=== PATIENT | female | born 1960 | race Caucasian/White ===

== ENCOUNTER 2021-01-17 12:55 | Outpatient (REF) | payer MEDICAID, SELFPAY ==
--- NOTE | ~2021-01-17 | MM_ITS ---
EXAMINATION: MM SCREENING DIGITAL BREAST TOMOSYNTHESIS, BILATERAL CLINICAL INFORMATION: Screening. Asymptomatic. The lifetime risk of breast cancer based on the Tyrer-Cuzick Model is 4%. COMPARISON: Mammography: 09/02/2019, 08/06/2018, 06/24/2017 TECHNIQUE: Digital breast tomosynthesis is performed in both the craniocaudal and mediolateral oblique views along with computer-aided detection (CAD). Synthesized 2D images are generated from the tomosynthesis. Additional right MLO view is provided. FINDINGS: There are scattered areas of fibroglandular density (ACR BI-RADS breast composition Category b). There are no significant masses, abnormal calcifications, or other abnormalities. Parenchymal pattern is similar to prior studies. No significant changes. MM/MM tomosynthesis screening BI IMPRESSION: No mammographic evidence of malignancy. ASSESSMENT: BI-RADS 1: Negative RECOMMENDATION: Routine annual mammography screening. This patient's information was entered into a reminder system with a target due date for their next mammogram.
== END 2021-01-17 12:56 | disposition home or self-care (01) ==
LOC: HO.MAMMO 12:55
PROVIDERS: PCP General Practice; Visit Provider General Practice
DX: Z12.31 Encounter for screening mammogram for malignant neoplasm of breast (principal)
CPT/HCPCS: 77063; 77067

== ENCOUNTER 2022-01-20 13:34 | Outpatient (REF) | payer MEDICAID, SELFPAY ==
--- NOTE | ~2022-01-20 | MM_ITS ---
EXAMINATION: MM SCREENING DIGITAL BREAST TOMOSYNTHESIS, BILATERAL CLINICAL INFORMATION: Screening. Asymptomatic. The lifetime risk of breast cancer based on the Tyrer-Cuzick Model is 4%. COMPARISON: Mammography: 01/17/2021, 09/02/2019, 08/06/2018 TECHNIQUE: Digital breast tomosynthesis is performed in both the craniocaudal and mediolateral oblique views along with computer-aided detection (CAD). Synthesized 2D images are generated from the tomosynthesis. Additional bilateral CC and bilateral MLO views are provided. FINDINGS: There are scattered areas of fibroglandular density (ACR BI-RADS breast composition Category b). There are no significant masses, abnormal calcifications, or other abnormalities. Parenchymal pattern is similar to prior studies. No developing density. No architectural abnormality. The axilla are unremarkable. MM/MM tomosynthesis screening BI IMPRESSION: No mammographic evidence of malignancy. ASSESSMENT: BI-RADS 1: Negative RECOMMENDATION: Routine annual mammography screening. This patient's information was entered into a reminder system with a target due date for their next mammogram.
== END 2022-01-20 13:35 | disposition home or self-care (01) ==
LOC: HO.MAMMO 13:34
PROVIDERS: PCP General Practice; Visit Provider General Practice
DX: Z12.31 Encounter for screening mammogram for malignant neoplasm of breast (principal)
CPT/HCPCS: 77063; 77067

== ENCOUNTER → 2022-01-22 09:54 | Outpatient (BNVA) | payer MEDICAID, SELFPAY | PROVIDERS: PCP General Practice; Referring Provider General Practice; Visit Provider Physician Assistant | DX: Z12.11 Encounter for screening for malignant neoplasm of colon (principal); K21.9 Gastro-esophageal reflux disease without esophagitis; K59.09 Other constipation | CPT/HCPCS: 99202; 99212 ==

== ENCOUNTER → 2022-01-28 13:19 | Outpatient (BNVA) | payer MEDICAID, SELFPAY | PROVIDERS: PCP General Practice; Visit Provider Internal Medicine Pulmonary Disease | DX: J44.9 Chronic obstructive pulmonary disease, unspecified (principal); G47.33 Obstructive sleep apnea (adult) (pediatric); R06.00 Dyspnea, unspecified; Z91.09 Other allergy status, other than to drugs and biological substances | CPT/HCPCS: 99202 ==

== ENCOUNTER 2022-02-12 13:44 | Outpatient (REF) | payer MEDICAID, SELFPAY ==
--- NOTE | ~2022-02-12 | CT_ITS ---
EXAMINATION: CT CHEST WITHOUT CONTRAST CLINICAL INFORMATION: COPD COMPARISON: Previous chest x-ray most recent January 2018 TECHNIQUE: Multidetector volumetric CT imaging of the chest was done. Axial MIP volume rendering provided. Sagittal and coronal reformatted images were obtained. This CT examination was performed using dose optimization techniques as appropriate, variously including the following: *Automated exposure control *Adjustment of mA and/or kV according to patient size (this includes techniques or standardized protocols for targeted exams where dose is matched to indication/reason for exam; i.e. extremities or head) *Use of iterative reconstruction technique DLP: 283 mGy-cm FINDINGS: LUNGS: There is evidence of mild paraseptal emphysema. There is a 2 mm right upper lobe nodule axial image 36 series 10. There is a 2 mm peripheral or subpleural left lower lobe nodule adjacent to the fissure axial image 79 series 10. 2 mm nodule along the right minor fissure axial image 86 series 10. There is a 2 mm calcified right lower lobe nodule axial image 104 series 10 There is question of a 2 mm peripheral left lower lobe nodule axial image 113 series 10. There is a small 1 cm cyst in the left lower lobe axial image 140 series 10. There is increased soft tissue seen in the left mainstem bronchus. This measures 5 mm. MEDIASTINUM: There is diffuse shotty mediastinal lymphadenopathy. No enlarged lymph nodes are seen. The heart is upper normal in size. There is mild atherosclerotic disease and coronary artery calcification. There is no pericardial effusion. The thoracic aorta is normal in caliber. The visualized thyroid gland is normal. PLEURA: There is no pleural effusion. No pleural mass or thickening. AXILLA: No lymphadenopathy. UPPER ABDOMEN: There is fatty infiltration of the liver. The liver may be enlarged. OSSEOUS STRUCTURES: There are mild degenerative changes of the spine. CT/CT chest wo con IMPRESSION: Mild paraseptal emphysema. Small pulmonary nodules, largest measuring 2 mm. Question 5 mm endobronchial nodule in the left mainstem bronchus. Mild coronary artery calcification. Fatty liver. According to the UPDATED 2017 Fleischner Society recommendations, the advised follow-up imaging for less than 6 mm solid nodule: Low risk, no chest CT follow-up and high risk, optional chest CT follow-up in one year.
== END 2022-02-12 13:45 | disposition home or self-care (01) ==
LOC: HO.CT 13:44
PROVIDERS: Visit Provider Internal Medicine Pulmonary Disease
DX: J44.9 Chronic obstructive pulmonary disease, unspecified (principal)
CPT/HCPCS: 71250

== ENCOUNTER → 2022-02-19 12:25 | Outpatient (REF) | payer MEDICAID, SELFPAY ==
--- NOTE | 2022-02-19 13:40 | PFT_ITS ---
Forced vital capacity 70%, FEV1 70%, FEV1/FVC ratio is 79. CPU22-88 is 62% and MVV 68%. Post bronchodilator therapy, there is a slight improvement in FEV1 and marked improvement in KHV20-06. Total lung capacity 87% and residual volume 98%. Diffusion capacity 60%. CONCLUSION: Moderately severe obstructive airway disorder with excellent response to bronchodilator therapy. These findings are consistent with bronchial asthma/COPD overlap syndrome. Clinical correlation is recommended. Cherie Peterson MD MSB/MODL / [id number]
== END ==
LOC: HO.SL 12:25
PROVIDERS: PCP General Practice; Visit Provider Internal Medicine Pulmonary Disease
DX: G47.33 Obstructive sleep apnea (adult) (pediatric) (principal); J44.9 Chronic obstructive pulmonary disease, unspecified
CPT/HCPCS: 94060; 94727; 94729; 95806

== ENCOUNTER → 2022-03-13 13:34 | Outpatient (REF) | payer MEDICAID, SELFPAY ==
--- NOTE | 2022-03-13 13:38 | CA_ITS ---
Transthoracic Echocardiogram Patient (Last, First, Middle): Taya Hall L Gender: Female Date of : 1960 Age: 61 Procedure Date: 03/13/2022 Procedure Type: Transthoracic Echocardiogram Location: OP Height: 160.02 cm Weight: 97.07 kg BSA: 1.99 m2 Heart Rate: 72 bpm BP: 138 / 74 mmHg Stripping Shovel Oiler: SB Referring MD: Bobby Miller MD Security And Compliance Project Manager: Glynn Dotson MD Symptoms: R06.00 - Dyspnea, unspecified Study Quality: Adequate/Contrast ECG Rhythm: Sinus Conclusions: - 1. Hyperdynamic LV systolic function with pseudonormal filling pattern 2. Mitral valve not well visualized could represent rheumatic changes with at least mild mitral stenosis and mild mitral regurgitation 3. Mild aortic stenosis 4. RV systolic pressure could not be evaluated on this study Findings Procedure Information Contrast agent, definity, is being given per protocol without apparent complications. Left Ventricle Normal left ventricular cavity size. There is normal left ventricular wall thickness. The left ventricular systolic function is hyperdynamic. The visually estimated ejection fraction is >70%. Spectral Doppler is indicative of a pseudonormal filling pattern. Right Ventricle Normal right ventricular cavity size. There is borderline right ventricular systolic function. Atria The left atrium was not well visualized. Interatrial shunt cannot be excluded. The right atrium was not well visualized. Aortic Valve The aortic valve was not well visualized. There is mild aortic valve stenosis. The peak aortic gradient is 17 mmHg.The mean gradient is 10 mmHg. The aortic valve area is 1.76 cm2. There is no aortic valve regurgitation. Mitral Valve The mitral valve was not well visualized. There is mild mitral valve regurgitation. There is mild mitral valve stenosis. The calculated mitral valve area by pressure half time is 2.39 cm2. Pulmonic Valve The pulmonic valve was not well visualized. Tricuspid Valve The tricuspid valve was not well visualized. Tricuspid regurgitation envelope is inadequate for calculation of right ventricular systolic pressure. Great Vessels All visible segments of the aorta are normal in size. The pulmonary artery was not well visualized. Venous The inferior vena cava was not well visualized. Pericardium/Pleural The pericardium was not well visualized. Prior Study Comparison No prior study available for comparison. Recommendations, Care & Conclusions Consider a REINALDO if clinically appropriate. Measurements 2D Linear Measurements IVSd: 1.02 0.6-0.9/0.6-1.0 cm LVIDd: 4.90 3.9-5.3/4.2-5.9 cm LVIDd Index: 2.46 2.4-3.2/2.2-3.1 cm/m2 LVIDs: 3.29 2.0-3.6 cm LVPWd: 0.92 0.7-1.1 cm LA Diam: 4.20 2.7-3.8/3.0-4.0 cm LAIDs Index: 2.11 1.5-2.3 cm/m2 LV Mass: 210.75 67-162/88-224 g LV Mass Index: 105.91 43-95/49-115 g/m2 LVOT Diam: 2.10 3.0+(-)1.3 cm 2D Systolic Function EF 4C: 73.50 >55% EF 2C: 72.40 >55% EF BiP: 73.30 >55% Mitral Valve MV VTI: 0.52 MV Pk Everett: 1.67 MV Mn Everett: 1.25 MV Pk Grad: 11.00 MV Mn Grad: 7.00 MV Pk E: 1.61 MV PK A: 1.53 MV Decel Time: 314.00 E/A: 1.10 E'Lateral: 6.85 E'Medial: 3.92 E/E' Med: 41.10 E/E' Lat: 23.50 PHT: 92.00 MVA PHT: 2.39 MVA Planim: 2.48 MVA Continuity: 1.36 Decel Chambers: 5.13 Aortic Valve AoV Pk Everett: 2.04 AoV Mn Everett: 1.42 AoV VTI: 0.40 AoV Pk Grad: 17.00 Aov Mn Grad: 10.00 CYNDEE Cont.VTI: 1.76 LVOT LVOT Pk Everett: 1.01 LVOT Mn Everett: 0.76 LVOT VTI: 0.21 LVOT Pk Grad: 4.00 LVOT Mn Grad: 3.00 LVOT Diam: 2.10 LVOT Area: 3.46 Diastolic Function MV Pk E: 1.61 MV Pk A: 1.53 E/A: 1.10 E'Medial: 3.92 E/E' Med: 41.10 E' Laterial: 6.85 E/E' Lat: 23.50 Right Ventricle TAPSE (mm): 16.80 TVS' Everett: 10.40 Great Vessels Aorta Sinus of Valsalva: 3.00 2.0-3.5 cm Ao Asc: 3.00 2.1-3.4 cm Ao Arch: 2.10 Pulmonary Veins Pulm Vein S/D 2.00 Pulmonary Valve PV Pk Everett: 0.94 Peak PV Grad: 4.00 Updated in Other Vendor System with Status of Final Glynn Dotson MD electronically signed on 03/14/2022 11:10:15 AM with status of Final
[2022-03-13 13:48] LABS: MANUAL DIFF FLAG NO
[2022-03-13 14:41] LABS: Basophils Percent Auto 0.2 % (0-2); Eosinophils Absolute Auto 0.2 X10*3/uL (0.0-0.4); Eosinophils Percent Auto 2.5 % (0-4); Hematocrit 38.4 % (37.0-47.0); Hemoglobin 12.3 g/dl (12.0-16.0); Imm Gran Abs Auto 0.02 X10*3/uL (0.00-0.03); Imm Gran Pct Auto 0.2 % (0.0-0.4); Lymphocytes Absolute Auto 4.6 X10*3/uL (1.2-4.9); Mean Corpuscular Hemoglobin 30.1 pg (27.0-33.0); Mean Corpuscular Volume 94.1 fL (80.0-98.0); Mean Platelet Volume 9.7 fL (9.4-12.3); Monocytes Absolute Auto 0.7 X10*3/uL (0.1-1.2); Neutrophils Absolute Auto 3.3 x10*3/uL (2.0-8.3); Neutrophils Percent Auto 37.1 % (45-73); Platelet Count 283 X10*3/uL (160-400); Red Blood Count 4.08 X10*6/uL (4.20-5.50); Red Cell Distribution Width 13.1 % (11.0-16.0); White Blood Count 8.9 X10*3/uL (4.8-10.8)
== END ==
LOC: HO.CARD 13:34
PROVIDERS: PCP General Practice; Visit Provider Internal Medicine Pulmonary Disease
DX: R06.00 Dyspnea, unspecified (principal); Z91.09 Other allergy status, other than to drugs and biological substances
CPT/HCPCS: 36415; 82785; 85025; 86003; 93306; Q9957

== ENCOUNTER → 2022-04-22 12:17 | Outpatient (BNVA) | payer MEDICAID, SELFPAY | PROVIDERS: PCP General Practice; Visit Provider Internal Medicine Pulmonary Disease | DX: Z01.811 Encounter for preprocedural respiratory examination (principal); J44.9 Chronic obstructive pulmonary disease, unspecified; G47.33 Obstructive sleep apnea (adult) (pediatric) | CPT/HCPCS: 99212 ==

== ENCOUNTER 2022-05-14 09:53 | Day surgery (SDC) | payer MEDICAID, SELFPAY ==
[2022-04-29 10:07] VITALS: BMI 37.5
[2022-05-14 10:13] VITALS: BP 155/77; PULSE 74; RESP 16; TEMP 35.9; O2SAT 96
--- NOTE | 2022-05-14 10:14 | HO.ANESPROP2 ---
[facility] Active Problems Active Problems: All Active Problems (Updated 04/29/22 @ 09:53 by Vicki Malave RN) Acid reflux (Acute) Encounter for screening colonoscopy (Acute) COPD (chronic obstructive pulmonary disease) (Acute) HTN (hypertension) (Acute) Chronic constipation (Acute) HIV (human immunodeficiency virus infection) (Acute) Asthma-COPD overlap syndrome (Acute) Environmental allergies (Acute) MARTA (obstructive sleep apnea) (Acute) Dyspnea on exertion (Acute) Encounter for preoperative pulmonary examination (Acute) Past Medical History Medical History Anxiety and depression Asthma COPD (chronic obstructive pulmonary disease) HIV (human immunodeficiency virus infection) Migraine headache Smoker Family History Family history of problems with anesthesia: No Surgical History Surgical History (Updated 04/29/22 @ 09:53 by Vicki Malave RN) History of appendectomy Hx of ovarian cystectomy Hx of tonsillectomy Hx of tubal ligation History of Problems with Anesthesia: No Social History Social History Household Members: Children Household Members Other:: Resides in a Residential Are you a primary health care facilities inspector to a significant other at home: No Do you presently have visiting nurse or 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 If so, by whom?: No Are you DNR?: No Advance Directives: No Advance Directives Information Provided: Yes Advance Directives on File: No Recently lost weight without trying: No Eating poorly because of decreased appetite: No Nutrition Risks: No Nutritional Risk Meds Allergies Allergy/AdvReac Type Severity Reaction Status Date / Time penicillin G Allergy Unknown rash Verified 04/22/22 13:01 penicillin V Allergy Unknown rash Verified 04/22/22 13:01 Home Medications Medication Instructions Recorded Confirmed Last Taken Type albuterol sulfate 90 mcg/actuation 2 puff inhalation Q6H PRN Wheezing 01/22/22 04/29/22 Unknown History aerosol inhaler (ProAir HFA) amitriptyline 25 mg tablet 25 mg PO BEDTIME 01/22/22 04/29/22 Unknown History aspirin 81 mg chewable tablet 81 mg PO DAILY 01/22/22 04/29/22 Unknown History bictegravir 50 mg-emtricitabine 1 tab PO DAILY 01/22/22 04/29/22 Unknown History 200 mg-tenofovir alafenam 25 mg tablet (Biktarvy) bupropion HCl 300 mg 24 hr tablet, 300 mg PO QAM 01/22/22 04/29/22 Unknown History extended release (Wellbutrin XL) butalbital 50 mg-acetaminophen 300 1 cap PO Q4H PRN Migraine Headache 01/22/22 04/29/22 Unknown History mg-caffeine 40 mg-codeine 30 mg cap celecoxib 100 mg capsule 200 mg PO DAILY 01/22/22 04/29/22 Unknown History cetirizine 10 mg capsule (Zyrtec) 10 mg PO DAILY PRN Allergy Symptoms 01/22/22 04/29/22 Unknown History cholecalciferol (vitamin D3) 25 25 mcg PO DAILY 01/22/22 04/29/22 Unknown History mcg (1,000 unit) capsule cyproheptadine 4 mg tablet 4 mg PO BEDTIME 01/22/22 04/29/22 Unknown History docusate sodium 100 mg capsule 100 mg PO DAILY 01/22/22 04/29/22 Unknown History fluticasone 500 mcg-salmeterol 50 1 inh inhalation BID 01/22/22 04/29/22 Unknown History mcg/dose blistr powdr for inhalation (Advair Diskus) fluticasone propionate 50 1 spray intranasal Q12H 01/22/22 04/29/22 Unknown History mcg/actuation nasal spray,suspension hydroxychloroquine 200 mg tablet 200 mg PO BID 01/22/22 04/29/22 Unknown History omega 4-mqd-zzd-fish oil 100 cap PO 01/22/22 01/24/22 Unknown History mg-160 mg-1,000 mg capsule (Fish Oil) omeprazole 40 mg capsule,delayed 40 mg PO DAILY 01/22/22 04/29/22 Unknown History release oxybutynin chloride 15 mg 15 mg PO DAILY 01/22/22 04/29/22 Unknown History tablet,extended release 24 hr propranolol 60 mg capsule,24 60 mg PO BEDTIME 01/22/22 04/29/22 Unknown History hr,extended release sennosides 8.6 mg capsule (senna) 8.6 mg PO DAILY 01/22/22 04/29/22 Unknown History simvastatin 40 mg tablet 40 mg PO BEDTIME 01/22/22 04/29/22 Unknown History tiotropium bromide 18 mcg capsule 1 cap inhalation DAILY 01/22/22 04/29/22 Unknown History with inhalation device (Spiriva with HandiHaler) Exam Exam Date and Time: May 14, 2022 1014 Height,Weight and Vital Signs: Height 5 ft 3 in Weight 96.162 kg Airway Mallampati Class: II (Couple teeth on bottom) TM Dist: >3cm Neck ROM: Full Denture: Upper Heart: rrr Lungs: cta Assessment and Plan Assessment Anesthesia Assessment: Anesthesia Plan Discussed and Chart Reviewed Final Anesthetic Review Family History of Problems with Anesthesia: No History of Problems with Anesthesia: No NPO: Yes ASA Class: III Final Preanesthetic Review: No Changes in Pt Med Stat, Meds/Allgs Chart Reviewed and Consent Obtained/Reviewed Patient Risk: Intermediate Procedure Risk: Intermediate Anesthetic Plan Anesthetic Plan: MAC: Disposition: Standard PACU
--- NOTE | 2022-05-14 10:23 | MHC.SHP ---
Pre-Procedural Eval Section A Date of Service: 05/14/22 Section B Chief Complaint: screening,reflux Relevant Family History (Specify if Yes): No Relevant Social History: Tobacco Use Present Medications: see Short Stay Collaborative assessment Medical History: Significant History (htn,copd, hiv,arti) History of Previous Operations: Relevant previous surgery/procedure and date(s) (History of appendectomy Hx of tonsillectomy Hx of tubal ligation) Allergies: Allergies Allergy/AdvReac Type Severity Reaction Status Date / Time penicillin G Allergy Unknown rash Verified 04/22/22 13:01 penicillin V Allergy Unknown rash Verified 04/22/22 13:01 Review of Systems Sugical H&P ROS: Negative: Constitution, Cardiovascular, Respiratory, Neurological, Psychiatric, Hem-Onc, Allergic/Immunologic, Gastrointestinal, Genitourinary, Musculoskeletal, Integumentary, Endocrine and Eyes/Ears/Nose/Throat Exam Surgical H&P Exam: Normal: HEENT, Normal: Heart, Normal: Lungs, Normal: Extremities, Normal: Abdomen, Normal: Skin and Normal: Neurological Plan Diagnosis/Plan: Unchanged I have reviewed the history and physical and performed a pertinent physical examination on my patient. No changes have occurred unless specified.
[2022-05-14] MEDS: Lactated Ringers 1,000 ML 50 ML IVCONT (10:29)
--- NOTE | 2022-05-14 10:39 | W.PM.OPN ---
Operative Note Operative Note Date of Service: 05/14/22 Narrative: Operative Information Procedure Description: EGD, Colonoscopy Indication: screening and reflux Anesthesia: MAC FLEXIBLE TRANSORAL UPPER GASTROINTESTINAL ENDOSCOPY AND COLONOSCOPY PROCEDURE NOTE UPPER ENDOSCOPY Consent: Indications for the procedure and potential complications of bleeding, perforation, reaction to medications and missed diagnosis were discussed with the patient and informed consent was obtained. Instrument: Olympus GIF H 190 J mid size upper endoscope Monitoring: Vital signs and clinical assessment, continuous EKG monitoring, Pulse oximetry, Carbon Dioxide monitoring and blood pressure monitoring were done throughout the procedure. Procedure: The patient was placed in the left lateral decubitis position and pre-procedure medications were administered and a bite block was placed. The endoscope was inserted into the mouth and advanced under direct vision to the third part of duodenum. A careful inspection was made as the upper endoscope was withdrawn including a retroflexed examination of the proximal stomach; Findings and interventions are described below. Findings: Larynx: boggy and edematous appearing Esophagus: GE junction at 40 cm, diaphragm hiatus at 40 cm, suspected short segment barretts wt an island of salmon pink tissue at GEJ and short tongue Stomach: streaky erythema at antrum. Biopsies were obtained. Grade 2 flap valve on retroflexed examination of the cardia. Duodenum: Normal bulb and descending duodenum, Intervention: Biopsies as noted above COLONOSCOPY Instrument: Olympus variable stiffness pediatric scope 190L Colonoscopy Monitoring: Vital signs and clinical assessment, continuous EKG monitoring, Pulse oximetry, Carbon Dioxide monitoring and blood pressure monitoring were done throughout the procedure. The scope was inserted but the colon was full of stools, up to the ascending colon, with poor visualization so the procedure was aborted. Impression and Post Procedure Diagnosis: Endoscopy Findings: possible barretts gastritis Colonoscopy Findings: poor prep, aborted colonoscopy Plan: Await Pathology results, if h pylori pos then treat Repeat Colonoscopy in few months and review prep instructions with her again Above findings were reviewed with the patient and relevant handouts were provided if indicated.
[2022-05-14 11:23] VITALS: BP 97/47; PULSE 82; RESP 16; TEMP 36.8; O2SAT 96
[2022-05-14 11:39] VITALS: BP 117/61; PULSE 81; RESP 17; TEMP 36.8; O2SAT 97
== END 2022-05-14 12:25 | disposition home or self-care (01) ==
PROVIDERS: PCP General Practice; Visit Provider Internal Medicine Gastroenterology
PROC: (CPT 45378; principal; 2022-05-14 11:00)
DX: Z12.11 Encounter for screening for malignant neoplasm of colon (principal); Z91.19 Patient's noncompliance with other medical treatment and regimen; K21.9 Gastro-esophageal reflux disease without esophagitis; K29.50 Unspecified chronic gastritis without bleeding; B96.81 Helicobacter pylori [H. pylori] as the cause of diseases classified elsewhere; G47.33 Obstructive sleep apnea (adult) (pediatric); K44.9 Diaphragmatic hernia without obstruction or gangrene
CPT/HCPCS: 45378; 43239; 88305; 88342

== ENCOUNTER → 2022-06-23 10:35 | Outpatient (BNVA) | payer MEDICAID, SELFPAY | PROVIDERS: PCP General Practice; Visit Provider Physician Assistant | DX: K21.9 Gastro-esophageal reflux disease without esophagitis (principal); A04.8 Other specified bacterial intestinal infections | CPT/HCPCS: 99212 ==

== ENCOUNTER → 2022-08-19 10:17 | Outpatient (BNVA) | payer MEDICAID, SELFPAY | PROVIDERS: PCP General Practice; Visit Provider Physician Assistant | DX: Z13.89 Encounter for screening for other disorder (principal) ==

== ENCOUNTER 2022-08-19 16:42 | Outpatient (REF) | payer MEDICAID, SELFPAY ==
[2022-08-22 14:47] LABS: H Pylori Breath Test Negative (Negative)
== END 2022-08-19 16:43 | disposition home or self-care (01) ==
LOC: HO.LNP 16:42
PROVIDERS: Visit Provider Physician Assistant
DX: A04.8 Other specified bacterial intestinal infections (principal)
CPT/HCPCS: 83013

== ENCOUNTER → 2022-12-04 11:48 | Outpatient (BNVA) | payer MEDICAID, SELFPAY | PROVIDERS: PCP General Practice; Visit Provider Physician Assistant | DX: Z98.890 Other specified postprocedural states (principal) | CPT/HCPCS: 99212 ==

== ENCOUNTER 2023-03-05 10:40 | Outpatient (REF) | payer MEDICAID, SELFPAY ==
--- NOTE | ~2023-03-05 | MM_ITS ---
EXAMINATION: MM SCREENING DIGITAL BREAST TOMOSYNTHESIS, BILATERAL CLINICAL INFORMATION: Screening. Asymptomatic. The lifetime risk of breast cancer based on the Tyrer-Cuzick Model is 3.7%. COMPARISON: Mammography: This study is compared with prior exams dating back to 2018. TECHNIQUE: Digital breast tomosynthesis is performed in both the craniocaudal and mediolateral oblique views along with computer-aided detection (CAD). Synthesized 2D images are generated from the tomosynthesis. FINDINGS: The breasts are almost entirely fatty (ACR BI-RADS breast composition Category a). There are no significant masses, abnormal calcifications, or other abnormalities. MM/MM tomosynthesis screening BI IMPRESSION: No mammographic evidence of malignancy. ASSESSMENT: BI-RADS BI-RADS 1 - Negative RECOMMENDATION: Routine annual mammography screening. 1 year F/U This examination should not preclude the clinical evaluation of a suspicious palpable abnormality. This patient's information was entered into a reminder system with a target due date for their next mammogram.
== END 2023-03-05 10:41 | disposition home or self-care (01) ==
LOC: HO.MAMMO 10:40
PROVIDERS: PCP General Practice; Visit Provider General Practice
DX: Z12.31 Encounter for screening mammogram for malignant neoplasm of breast (principal)
CPT/HCPCS: 77063; 77067

== ENCOUNTER → 2023-03-05 11:00 | Outpatient (BNV) | payer MEDICAID, SELFPAY | PROVIDERS: PCP General Practice; Visit Provider Radiology Diagnostic Radiology | DX: Z12.31 Encounter for screening mammogram for malignant neoplasm of breast (principal) | CPT/HCPCS: 77063; 77067 ==

== ENCOUNTER 2023-05-05 13:02 | Outpatient (REF) | payer MEDICAID, SELFPAY ==
[2023-05-05 16:29] LABS: Basophils Absolute Auto 0.1 X10*3/uL (0.0-0.2); Basophils Percent Auto 0.5 % (0-2); Eosinophils Absolute Auto 0.2 X10*3/uL (0.0-0.4); Eosinophils Percent Auto 1.8 % (0-4); Hematocrit 42.7 % (37.0-47.0); Hemoglobin 13.8 g/dl (12.0-16.0); Imm Gran Abs Auto 0.03 X10*3/uL (0.00-0.03); Imm Gran Pct Auto 0.3 % (0.0-0.4); Lymphocytes Absolute Auto 5.6 X10*3/uL (1.2-4.9); MANUAL DIFF FLAG SCAN; Mean Corpuscular HGB Conc 32.3 g/dl (31.0-35.0); Mean Corpuscular Hemoglobin 31.7 pg (27.0-33.0); Mean Corpuscular Volume 97.9 fL (80.0-98.0); Mean Platelet Volume 10.2 fL (9.4-12.3); Monocytes Absolute Auto 0.7 X10*3/uL (0.1-1.2); Monocytes Percent Auto 7.3 % (2-11); Neutrophils Absolute Auto 3.6 x10*3/uL (2.0-8.3); Neutrophils Percent Auto 35.1 % (45-73); Platelet Count 321 X10*3/uL (160-400); Red Blood Count 4.36 X10*6/uL (4.20-5.50); Red Cell Distribution Width 12.7 % (11.0-16.0); SCAN SMEAR FLAG 1; White Blood Count 10.1 X10*3/uL (4.8-10.8)
[2023-05-05 16:48] LABS: Alanine Aminotransferase 25 U/L (0-31); Albumin Level 4.2 g/dL (3.5-5.0); Alkaline Phosphatase 151 U/L (39-117); Anion Gap 11 (12-20); Aspartate Amino Transferase 35 U/L (5-31); Bilirubin Total 0.6 mg/dL (0.0-1.0); Blood Urea Nitrogen 16 mg/dL (9-16); Calcium 10.2 mg/dL (8.4-10.2); Carbon Dioxide 30 mmol/L (22-29); Chloride 104 mmol/L (96-108); Estimated Glomerular Filt Rate 44; Glucose Random 132 mg/dL (60-115); Potassium 4.7 mmol/L (3.3-5.1); Sodium 140 mmol/L (135-145); Total Protein 8.2 g/dL (6.5-8.0)
[2023-05-05 17:07] LABS: SLIDE REVIEW VERIFIED
[2023-05-06 15:34] LABS: HIV RNA PCR Qn Copies 187 copies/mL (NOT DETECTED); HIV RNA PCR Qn Log Copies 2.27 (NOT DETECTED)
[2023-05-07 11:43] LABS: Absolute CD4 Count 1890 cells/uL (490-1740); Absolute CD8 Count 2459 cells/uL (180-1170); Absolute Lymphocytes 6116 cells/uL (850-3900); CD4 CD8 Ratio 0.77 (0.86-5.00); Percent CD4 Cells 31 % (30-61); Percent CD8 Cells 40 % (12-42)
== END 2023-05-05 13:03 | disposition home or self-care (01) ==
LOC: HO.HHCL 13:02
PROVIDERS: Visit Provider Family Medicine
DX: B20 Human immunodeficiency virus [HIV] disease (principal)
CPT/HCPCS: 36415; 80053; 85025; 86360; 87536

== ENCOUNTER 2023-06-30 07:37 | Day surgery (SDC) | payer MEDICAID, SELFPAY ==
--- NOTE | 2023-06-29 11:51 | P.CONAN_ITS ---
Documented by User: Milka Valdivia NP 06/29/23 11:52 HPI - Anesthesia Eval Consult details Narrative: 63yo F for Colonoscopy PMFSH Active Problems Active Problems: All Active Problems (Updated 06/23/22 @ 11:13 by Tammy Reyes PA-C) Hx of colonoscopy (Acute) H. pylori infection (Acute) Acid reflux (Acute) Encounter for screening colonoscopy (Acute) COPD (chronic obstructive pulmonary disease) (Acute) HTN (hypertension) (Acute) Chronic constipation (Acute) HIV (human immunodeficiency virus infection) (Acute) Asthma-COPD overlap syndrome (Acute) Environmental allergies (Acute) MARTA (obstructive sleep apnea) (Acute) Dyspnea on exertion (Acute) Encounter for preoperative pulmonary examination (Acute) Past Medical History Medical History Smoker Migraine headache Anxiety and depression HIV (human immunodeficiency virus infection) COPD (chronic obstructive pulmonary disease) Asthma Family History Family history of problems with anesthesia: No Surgical History Surgical History History of esophagogastroduodenoscopy (EGD) Hx of colonoscopy Hx of ovarian cystectomy Hx of tubal ligation Hx of tonsillectomy History of appendectomy History of Problems with Anesthesia: No Social History Social History Household Members: Children Household Members Other:: Resides in a Skilled Nursing Are you a primary director of career resources to a significant other at home: No Do you presently have visiting nurse or other home services: Yes (PATIENT SITTER) Alcohol intake: never Patient Tobacco Use Status: Current everyday Tobacco user Tobacco use type: Cigarette Cigarettes Per Day: 2 Years Smoked: 30+ Second Hand Smoke Exposure: Yes Use of substances other than those prescribed or required for medical reasons: No Are you DNR?: No Advance Directives: No Advance Directives Information Provided: Yes Meds Allergies Allergy/AdvReac Type Severity Reaction Status Date / Time penicillin G Allergy Unknown rash Verified 12/04/22 11:53 penicillin V Allergy Unknown rash Verified 12/04/22 11:53 Home Medications Medication Instructions Recorded Confirmed Last Taken Type albuterol sulfate 90 mcg/actuation 2 puff inhalation Q6H PRN Wheezing 01/22/22 06/23/22 Unknown History aerosol inhaler (ProAir HFA) amitriptyline 25 mg tablet 25 mg PO BEDTIME 01/22/22 06/23/22 Unknown History aspirin 81 mg chewable tablet 81 mg PO DAILY 01/22/22 06/23/22 06/23/23 History bictegravir 50 mg-emtricitabine 1 tab PO DAILY 01/22/22 06/23/22 05/14/22 07:00 History 200 mg-tenofovir alafenam 25 mg tablet (Biktarvy) bupropion HCl 300 mg 24 hr tablet, 300 mg PO QAM 01/22/22 06/23/22 05/14/22 07:00 History extended release (Wellbutrin XL) butalbital 50 mg-acetaminophen 300 1 cap PO Q4H PRN Migraine Headache 01/22/22 06/23/22 Unknown History mg-caffeine 40 mg-codeine 30 mg cap celecoxib 100 mg capsule 200 mg PO DAILY 01/22/22 06/23/22 Unknown History cetirizine 10 mg capsule (Zyrtec) 10 mg PO DAILY PRN Allergy Symptoms 01/22/22 06/23/22 Unknown History cholecalciferol (vitamin D3) 25 25 mcg PO DAILY 01/22/22 06/23/22 Unknown History mcg (1,000 unit) capsule cyproheptadine 4 mg tablet 4 mg PO BEDTIME 01/22/22 06/23/22 Unknown History docusate sodium 100 mg capsule 100 mg PO DAILY 01/22/22 06/23/22 Unknown History fluticasone 500 mcg-salmeterol 50 1 inh inhalation BID 01/22/22 06/23/22 Unknown History mcg/dose blistr powdr for inhalation (Advair Diskus) fluticasone propionate 50 1 spray intranasal Q12H 01/22/22 06/23/22 Unknown History mcg/actuation nasal spray,suspension hydroxychloroquine 200 mg tablet 200 mg PO BID 01/22/22 06/23/22 05/14/22 07:00 History omega 6-qwu-wjg-fish oil 100 cap PO 01/22/22 06/23/22 Unknown History mg-160 mg-1,000 mg capsule (Fish Oil) omeprazole 40 mg capsule,delayed 40 mg PO DAILY 01/22/22 06/23/22 06/30/23 07:00 History release oxybutynin chloride 15 mg 15 mg PO DAILY 01/22/22 06/23/22 Unknown History tablet,extended release 24 hr propranolol 60 mg capsule,24 60 mg PO BEDTIME 01/22/22 06/23/22 Unknown History hr,extended release sennosides 8.6 mg capsule (senna) 8.6 mg PO DAILY 01/22/22 06/23/22 Unknown H istory simvastatin 40 mg tablet 40 mg PO BEDTIME 01/22/22 06/23/22 Unknown History tiotropium bromide 18 mcg capsule 1 cap inhalation DAILY 01/22/22 06/23/22 Unknown History with inhalation device (Spiriva with HandiHaler) Exam Exam Date and Time: June 29, 2023 1151 Pertinent Lab Results Pertinent Lab Results: Laboratory Tests 05/05/23 13:06 WBC 10.1 Hgb 13.8 Hct 42.7 Plt Count 321 Sodium 140 Potassium 4.7 Chloride 104 Carbon Dioxide 30 H BUN 16 Creatinine 1.24 Narrative Narrative: ECHO 2021 Conclusions: - 1. Hyperdynamic LV systolic function with pseudonormal filling pattern 2. Mitral valve not well visualized could represent rheumatic changes with at least mild mitral stenosis and mild mitral regurgitation 3. Mild aortic stenosis 4. RV systolic pressure could not be evaluated on this study Assessment and Plan Assessment Anesthesia Assessment: Chart Reviewed Final Anesthetic Review Family History of Problems with Anesthesia: No History of Problems with Anesthesia: No Documented by User: Sabrina Lua MD 06/30/23 09:22 [facility] Past Medical History Medical History Smoker Migraine headache Anxiety and depression HIV (human immunodeficiency virus infection) COPD (chronic obstructive pulmonary disease) Asthma Surgical History Surgical History History of esophagogastroduodenoscopy (EGD) Hx of colonoscopy Hx of ovarian cystectomy Hx of tubal ligation Hx of tonsillectomy History of appendectomy Social History Social History Household Members: Children Household Members Other:: Resides in a Skilled Nursing Are you a primary director of career resources to a significant other at home: No Do you presently have visiting nurse or other home services: Yes (PATIENT SITTER) Alcohol intake: never Patient Tobacco Use Status: Current everyday Tobacco user Tobacco use type: Cigarette Cigarettes Per Day: 2 Years Smoked: 30+ Second Hand Smoke Exposure: Yes Use of substances other than those prescribed or required for medical reasons: No Are you DNR?: No Advance Directives: No Advance Directives Information Provided: Yes Meds Allergies Allergy/AdvReac Type Severity Reaction Status Date / Time penicillin G Allergy Unknown rash Verified 12/04/22 11:53 penicillin V Allergy Unknown rash Verified 12/04/22 11:53 Home Medications Medication Instructions Recorded Confirmed Last Taken Type albuterol sulfate 90 mcg/actuation 2 puff inhalation Q6H PRN Wheezing 01/22/22 06/23/22 Unknown History aerosol inhaler (ProAir HFA) amitriptyline 25 mg tablet 25 mg PO BEDTIME 01/22/22 06/23/22 Unknown History aspirin 81 mg chewable tablet 81 mg PO DAILY 01/22/22 06/23/22 06/23/23 History bictegravir 50 mg-emtricitabine 1 tab PO DAILY 01/22/22 06/23/22 05/14/22 07:00 History 200 mg-tenofovir alafenam 25 mg tablet (Biktarvy) bupropion HCl 300 mg 24 hr tablet, 300 mg PO QAM 01/22/22 06/23/22 05/14/22 07:00 History extended release (Wellbutrin XL) butalbital 50 mg-acetaminophen 300 1 cap PO Q4H PRN Migraine Headache 01/22/22 06/23/22 Unknown History mg-caffeine 40 mg-codeine 30 mg cap celecoxib 100 mg capsule 200 mg PO DAILY 01/22/22 06/23/22 Unknown History cetirizine 10 mg capsule (Zyrtec) 10 mg PO DAILY PRN Allergy Symptoms 01/22/22 06/23/22 Unknown History cholecalciferol (vitamin D3) 25 25 mcg PO DAILY 01/22/22 06/23/22 Unknown History mcg (1,000 unit) capsule cyproheptadine 4 mg tablet 4 mg PO BEDTIME 01/22/22 06/23/22 Unknown History docusate sodium 100 mg capsule 100 mg PO DAILY 01/22/22 06/23/22 Unknown History fluticasone 500 mcg-salmeterol 50 1 inh inhalation BID 01/22/22 06/23/22 Unknown History mcg/dose blistr powdr for inhalation (Advair Diskus) fluticasone propionate 50 1 spray intranasal Q12H 01/22/22 06/23/22 Unknown History mcg/actuation nasal spray,suspension hydroxychloroquine 200 mg tablet 200 mg PO BID 01/22/22 06/23/22 05/14/22 07:00 History omega 0-yal-eqx-fish oil 100 cap PO 01/22/22 06/23/22 Unknown History mg-160 mg-1,000 mg capsule (Fish Oil) omeprazole 40 mg capsule,delayed 40 mg PO DAILY 01/22/22 06/23/22 06/30/23 07:00 History release oxybutynin chloride 15 mg 15 mg PO DAILY 01/22/22 06/23/22 Unknown History tablet,extended release 24 hr propranolol 60 mg capsule,24 60 mg PO BEDTIME 01/22/22 06/23/22 Unknown History hr,extended release sennosides 8.6 mg capsule (senna) 8.6 mg PO DAILY 01/22/22 06/23/22 Unknown History simvastatin 40 mg tablet 40 mg PO BEDTIME 01/22/22 06/23/22 Unknown History tiotropium bromide 18 mcg capsule 1 cap inhalation DAILY 01/22/22 06/23/22 Unknown History with inhalation device (Spiriva with HandiHaler) Exam Airway Mallampati Class: II (edentulous) TM Dist: >3cm Neck ROM: Full Loose/Missing/Broken Teeth: Yes, Upper and Lower Heart: RRR Lungs: CTA Assessment and Plan Assessment Anesthesia Assessment: Anesthesia Plan Discussed Final Anesthetic Review NPO: Yes ASA Class: III Final Preanesthetic Review: Meds/Allgs Chart Reviewed, Consent Obtained/Reviewed and Anes Risks/Benef Reviewed Patient Risk: Intermediate Procedure Risk: Low Anesthetic Plan Anesthetic Plan: MAC: Disposition: Standard PACU
[2023-06-30 08:14] VITALS: BMI 36.5
[2023-06-30 08:17] VITALS: BP 132/61; PULSE 72; RESP 16; O2SAT 99
[2023-06-30 08:19] VITALS: BMI 36.5
[2023-06-30] MEDS: Lactated Ringers 1,000 ML 100 ML IVCONT (08:31)
--- NOTE | 2023-06-30 09:05 | MHC.SHP ---
Pre-Procedural Eval Section A Date of Service: 06/30/23 Section B Chief Complaint: Other specified postprocedural states Relevant Family History (Specify if Yes): No Relevant Social History: Tobacco Use Present Medications: see Short Stay Collaborative assessment Medical History: Significant History (Smoker Migraine headache Anxiety and depression HIV (human immunodeficiency virus infection) COPD (chronic obstructive pulmonary disease) Asthma) History of Previous Operations: Relevant previous surgery/procedure and date(s) (History of esophagogastroduodenoscopy (EGD) Hx of colonoscopy Hx of ovarian cystectomy Hx of tubal ligation Hx of tonsillectomy History of appendectomy) Allergies: Allergies Allergy/AdvReac Type Severity Reaction Status Date / Time penicillin G Allergy Unknown rash Verified 12/04/22 11:53 penicillin V Allergy Unknown rash Verified 12/04/22 11:53 Review of Systems Sugical H&P ROS: Negative: Constitution, Cardiovascular, Respiratory, Neurological, Psychiatric, Hem-Onc, Allergic/Immunologic, Gastrointestinal, Genitourinary, Musculoskeletal, Integumentary, Endocrine and Eyes/Ears/Nose/Throat Exam Surgical H&P Exam: Normal: HEENT, Normal: Heart, Normal: Lungs, Normal: Extremities, Normal: Abdomen, Normal: Skin and Normal: Neurological Plan Diagnosis/Plan: Unchanged I have reviewed the history and physical and performed a pertinent physical examination on my patient. No changes have occurred unless specified. Time Spent With Patient Time: Total time managing care of this patient today ____ minutes.
--- NOTE | 2023-06-30 09:24 | W.PM.OPN ---
Operative Note Operative Note Date of Service: 06/30/23 Narrative: Operative Information Procedure Description: Colonoscopy Indication: screening Anesthesia: MAC COLONOSCOPY Instrument: Olympus variable stiffness pediatric scope 190L Colonoscopy Monitoring: Vital signs and clinical assessment, continuous EKG monitoring, Pulse oximetry, Carbon Dioxide monitoring and blood pressure monitoring were done throughout the procedure. Colon withdrawal time was 9 minutes. Procedure: The patient was placed in the left lateral decubitis position and pre-procedure medications were administered. After a digital rectal examination of the ano-rectum, the video colonoscope was inserted into the rectum and advanced through the colon to the cecum/TI. The colonoscope was slowly withdrawn in a retrograde panoramic fashion and the colon mucosa was carefully examined including a retroflexed view of the rectum. Findings and interventions are described below. Procedure Difficulty: moderate Findings: Terminal Ileum-normal Cecum:normal Ascending Colon: 5-6 mm sessile polyp removed with cold forceps, and another 11-12 mm sessile polyp removed with cold snare Transverse Colon -normal Descending Colon:normal Sigmoid Colon: moderate diverticulosis Rectum: Retroflexion with medium sized internal hemorrhoids, grade I Anorectum - normal Colon preparation: [place] Bowel Preparation Scale Right colon; 1-2 Transverse colon: 2 Left colon; 2 (0 = Unprepared colon segment with mucosa not seen due to solid stool that cannot be cleared. 1 = Portion of mucosa of the colon segment seen, but other areas of the colon segment not well seen due to staining, residual stool and/or opaque liquid. 2 = Minor amount of residual staining, small fragments of stool and/or opaque liquid, but mucosa of colon segment seen well. 3 = Entire mucosa of colon segment seen well with no residual staining, small fragments of stool or opaque liquid) Impression and Post Procedure Diagnosis: polyps internal hemorrhoids diverticular disease Plan: High fiber diet leaflet Avoid straining at stool, epsom salts and sitz bath, anusol supps or cream Repeat Colonoscopy in 3 years due to fair right sided prep and polyps or earlier if clinically indicated Above findings were reviewed with the patient and relevant handouts were provided if indicated.
[2023-06-30 09:55] VITALS: BP 117/52; PULSE 77; RESP 18; TEMP 36.4; O2SAT 100
[2023-06-30 10:10] VITALS: BP 117/54; PULSE 74; RESP 18; TEMP 36.2; O2SAT 98
== END 2023-06-30 10:40 | disposition home or self-care (01) ==
PROVIDERS: PCP General Practice; Visit Provider Internal Medicine Gastroenterology
PROC: 0DJD8ZZ Inspection of Lower Intestinal Tract, Via Natural or Artificial Opening Endoscopic (ICD-10-PCS; CPT 45378; principal; 2023-06-30 09:00)
DX: Z12.11 Encounter for screening for malignant neoplasm of colon (principal); D12.2 Benign neoplasm of ascending colon; K57.30 Diverticulosis of large intestine without perforation or abscess without bleeding; K64.0 First degree hemorrhoids; K59.09 Other constipation; B20 Human immunodeficiency virus [HIV] disease; J44.9 Chronic obstructive pulmonary disease, unspecified; G47.33 Obstructive sleep apnea (adult) (pediatric); G43.909 Migraine, unspecified, not intractable, without status migrainosus; F41.8 Other specified anxiety disorders; Z79.51 Long term (current) use of inhaled steroids; Z79.82 Long term (current) use of aspirin; Z79.899 Other long term (current) drug therapy; Z98.890 Other specified postprocedural states; Z88.0 Allergy status to penicillin; F17.210 Nicotine dependence, cigarettes, uncomplicated
CPT/HCPCS: 45385; 45380; 88305

== ENCOUNTER → 2023-06-30 07:37 | Outpatient (BNV) | payer MEDICAID, SELFPAY | PROVIDERS: PCP General Practice; Visit Provider Internal Medicine Gastroenterology | DX: Z12.11 Encounter for screening for malignant neoplasm of colon (principal); D12.2 Benign neoplasm of ascending colon; K57.30 Diverticulosis of large intestine without perforation or abscess without bleeding; K64.0 First degree hemorrhoids | CPT/HCPCS: 45380; 45385 ==

== ENCOUNTER 2023-07-13 11:17 | Outpatient (REF) | payer MEDICAID, SELFPAY ==
[2023-07-13 14:10] LABS: Alanine Aminotransferase 29 U/L (0-31); Albumin Level 4.2 g/dL (3.5-5.0); Alkaline Phosphatase 166 U/L (39-117); Anion Gap 11 (12-20); Aspartate Amino Transferase 38 U/L (5-31); Bilirubin Total 0.5 mg/dL (0.0-1.0); Blood Urea Nitrogen 15 mg/dL (9-16); Calcium 9.9 mg/dL (8.4-10.2); Carbon Dioxide 30 mmol/L (22-29); Chloride 102 mmol/L (96-108); Estimated Glomerular Filt Rate 58; Glucose Random 123 mg/dL (60-115); Potassium 4.6 mmol/L (3.3-5.1); Sodium 138 mmol/L (135-145); Total Protein 8.1 g/dL (6.5-8.0)
[2023-07-15 09:03] LABS: HIV RNA PCR Qn Copies 49 copies/mL (NOT DETECTED); HIV RNA PCR Qn Log Copies 1.69 (NOT DETECTED)
[2023-07-22 21:38] LABS: HIV 1 Integrase Proviral DNA DETECTED; HIV 1 PR RT Proviral DNA DETECTED
== END 2023-07-13 11:18 | disposition home or self-care (01) ==
LOC: HO.HHCL 11:17
PROVIDERS: Visit Provider Student in an Organized Health Care Education/Training Program
DX: B20 Human immunodeficiency virus [HIV] disease (principal)
CPT/HCPCS: 36415; 80053; 87536; 87900; 87901; 87906

== ENCOUNTER 2023-10-09 10:39 | Outpatient (REF) | payer MEDICAID, SELFPAY ==
[2023-10-09 11:40] LABS: MANUAL DIFF FLAG NO
[2023-10-09 11:50] LABS: Basophils Percent Auto 0.5 % (0-2); Eosinophils Absolute Auto 0.2 X10*3/uL (0.0-0.4); Eosinophils Percent Auto 2.4 % (0-4); Hematocrit 40.6 % (37.0-47.0); Hemoglobin 13.1 g/dl (12.0-16.0); Imm Gran Abs Auto 0.03 X10*3/uL (0.00-0.03); Imm Gran Pct Auto 0.4 % (0.0-0.4); Lymphocytes Absolute Auto 4.1 X10*3/uL (1.2-4.9); Lymphocytes Percent Auto 49.3 % (20-40); Mean Corpuscular HGB Conc 32.3 g/dl (31.0-35.0); Mean Corpuscular Hemoglobin 30.9 pg (27.0-33.0); Mean Corpuscular Volume 95.8 fL (80.0-98.0); Mean Platelet Volume 9.8 fL (9.4-12.3); Monocytes Absolute Auto 0.6 X10*3/uL (0.1-1.2); Monocytes Percent Auto 7.1 % (2-11); Neutrophils Absolute Auto 3.4 x10*3/uL (2.0-8.3); Neutrophils Percent Auto 40.3 % (45-73); Platelet Count 304 X10*3/uL (160-400); Red Blood Count 4.24 X10*6/uL (4.20-5.50); Red Cell Distribution Width 12.5 % (11.0-16.0); White Blood Count 8.3 X10*3/uL (4.8-10.8)
[2023-10-09 12:15] LABS: Alanine Aminotransferase 36 U/L (0-31); Albumin Level 4.2 g/dL (3.5-5.0); Alkaline Phosphatase 201 U/L (39-117); Anion Gap 13 (12-20); Aspartate Amino Transferase 58 U/L (5-31); Bilirubin Total 0.5 mg/dL (0.0-1.0); Blood Urea Nitrogen 15 mg/dL (9-16); Calcium 9.9 mg/dL (8.4-10.2); Carbon Dioxide 28 mmol/L (22-29); Chloride 101 mmol/L (96-108); Estimated Glomerular Filt Rate > 60; Glucose Random 206 mg/dL (60-115); Potassium 4.2 mmol/L (3.3-5.1); Sodium 138 mmol/L (135-145); Total Protein 8.5 g/dL (6.5-8.0)
[2023-10-09 12:33] LABS: HBS Num1 0.16 mIU/mL (0-7.99); HBc Num1 0.11 S/CO (0.00-0.79); HBsAGNum1 0.31 S/CO (0.00-0.99); Hepatitis B Core Antibody Nonreactive (Nonreactive); Hepatitis B Surface Antigen Negative (Negative); Syphilis Screen Nonreactive (Nonreactive); ~HepC Num1 0.12 S/CO (0.00-0.79); ~Hepatitis B Surface Antibody NONREACTIVE (Nonreactive); ~Hepatitis C Antibody Nonreactive (Nonreactive)
[2023-10-09 12:59] LABS: CT PCR NOT DETECTED (Not Detect.); NG PCR NOT DETECTED (Not Detect.)
[2023-10-12 10:28] LABS: Absolute CD3 Count 3071 cells/uL (840-3060); Absolute CD4 Count 1579 cells/uL (490-1740); Absolute CD8 Count 1520 cells/uL (180-1170); Absolute Lymphocytes 4538 cells/uL (850-3900); CD4 CD8 Ratio 1.04 (0.86-5.00); Percent CD3 Cells 68 % (57-85); Percent CD4 Cells 35 % (30-61); Percent CD8 Cells 33 % (12-42)
[2023-10-12 13:43] LABS: HIV RNA PCR Qn Copies <20 DETECTED copies/mL (NOT DETECTED); HIV RNA PCR Qn Log Copies <1.30 DETECTED (NOT DETECTED)
== END 2023-10-09 10:40 | disposition home or self-care (01) ==
LOC: HO.HHCL 10:39
PROVIDERS: Visit Provider Student in an Organized Health Care Education/Training Program
DX: B20 Human immunodeficiency virus [HIV] disease (principal)
CPT/HCPCS: 0353U; 36415; 80053; 85025; 86359; 86360; 86704; 86706; 86780; 86803; 87340; 87536

== ENCOUNTER 2023-11-16 16:09 | Outpatient (REF) | payer MEDICAID, SELFPAY ==
[2023-11-16 18:40] LABS: CT PCR NOT DETECTED (Not Detect.); NG PCR NOT DETECTED (Not Detect.)
[2023-11-21 09:18] LABS: HPV mRNA E6/E7 rflx Not Detected (Not Detected)
[2023-11-25 06:39] LABS: HPV MRNA E6/E7 Rectal NOT DETECTED
== END 2023-11-16 16:10 | disposition home or self-care (01) ==
LOC: HO.HHCLNP 16:09
PROVIDERS: Visit Provider General Practice
DX: Z12.4 Encounter for screening for malignant neoplasm of cervix (principal); Z11.51 Encounter for screening for human papillomavirus (HPV)
CPT/HCPCS: 0353U; 36415; 87624; 88112; 88142

== ENCOUNTER 2024-02-19 09:44 | Outpatient (REF) | payer MEDICAID, SELFPAY ==
--- NOTE | ~2024-02-19 | CT_ITS ---
EXAMINATION: CT HEAD WITHOUT CONTRAST CLINICAL INFORMATION: Occipital headache, frequent falls, last fall one month ago. 63-year-old female. COMPARISON: None available. TECHNIQUE: Contiguous axial imaging was performed from the skull base to vertex without intravenous administration of contrast. This CT examination was performed using dose optimization techniques as appropriate, variously including the following: *Automated exposure control *Adjustment of mA and/or kV according to patient size (this includes techniques or standardized protocols for targeted exams where dose is matched to indication/reason for exam; i.e. extremities or head) *Use of iterative reconstruction technique DLP: 767 mGy-cm FINDINGS: There is no evidence of intracranial hemorrhage or extra-axial fluid collection. There is no mass effect, or edema. No CT evidence of acute territorial infarct. Ventricles, sulci, and cisterns are normal in size and configuration for patient age. No hydrocephalus. No midline shift. Focal hypodensity in the left mid mirza may reflect an old lacunar type infarct. Subtle hypodensity in the anterior limb of the right internal capsule is likely also representing an old lacunar type infarct. No significant white matter abnormalities otherwise. Empty sella noted. Mild atheromatous calcification of the bilateral carotid siphons and V4 segments vertebral arteries bilaterally. Globes and orbital contents image normally. Quite prominent adenoidal soft tissues are present in the posterior nasopharynx. There is fatty change of the parotids. No extracranial soft tissue abnormalities otherwise. The paranasal sinuses, mastoid air cells, and tympanic cavities are normally aerated. Aerated Sarah bullosa are present in the middle turbinates bilaterally. Degenerative changes noted in the left greater than right TM joints. CT/CT head/brain wo IV con IMPRESSION: 1. No acute intracranial abnormality. 2. Ancillary findings as discussed.
== END 2024-02-19 09:45 | disposition home or self-care (01) ==
LOC: HO.CT 09:44
PROVIDERS: PCP General Practice; Visit Provider General Practice
DX: R51.9 Headache, unspecified (principal); R29.6 Repeated falls
CPT/HCPCS: 70450

== ENCOUNTER → 2024-02-19 09:46 | Outpatient (BNV) | payer MEDICAID, SELFPAY | PROVIDERS: PCP General Practice; Visit Provider Radiology Diagnostic Radiology | DX: R51.9 Headache, unspecified (principal); R29.6 Repeated falls | CPT/HCPCS: 70450 ==

== ENCOUNTER 2024-02-22 14:53 | Outpatient (REF) | payer MEDICAID, SELFPAY | END 2024-02-22 14:54 | disposition home or self-care (01) | LOC: HO.HHCLNP 14:53 | PROVIDERS: Visit Provider Student in an Organized Health Care Education/Training Program | DX: Z21 Asymptomatic human immunodeficiency virus [HIV] infection status (principal) | CPT/HCPCS: 88112 ==

== ENCOUNTER 2024-02-25 13:36 | Outpatient (REF) | payer MEDICAID, SELFPAY ==
[2024-02-25 16:54] LABS: Estimated Average Glucose 180 mg/dL; Hemoglobin A1c % 7.9 % (<6.0)
[2024-02-25 18:15] LABS: Cholesterol 109 mg/dL (<200); HDL Cholesterol 27 mg/dL (>40); LDL Cholesterol Calculated 55 mg/dL (<100); Triglycerides 135 mg/dL (<150)
== END 2024-02-25 13:37 | disposition home or self-care (01) ==
LOC: HO.HHCL 13:36
PROVIDERS: Visit Provider General Practice
DX: E66.01 Morbid (severe) obesity due to excess calories (principal)
CPT/HCPCS: 36415; 80061; 83036

== ENCOUNTER 2024-03-15 12:40 | Outpatient (REF) | payer MEDICAID, SELFPAY ==
--- NOTE | ~2024-03-15 | MM_ITS ---
EXAMINATION: BONE DENSITOMETRY CLINICAL INDICATION: Menopause. COMPARISON: Baseline BD dated 08/10/2009. TECHNIQUE: Using a [employer] DXA System (software version: 13.1) manufactured by [employer], dual-energy x-ray absorptiometry was performed of the lumbar spine and left hip. The images are of good technical quality. Summary results are attached. FINDINGS: LEFT FEMUR, NECK: Current: BMD 0.826 g/cm2, Z-score -0.7, T-score -1.5, osteopenia. Baseline: BMD 0.887 g/cm2. LEFT FEMUR, TOTAL: Current: BMD 1.007 g/cm2, Z-score 0.5, T-score 0.0, normal, 3.8% increase from baseline (<5% change is not significant). Baseline: BMD 0.970 g/cm2. AP SPINE L1-L4: Current: BMD 1.002 g/cm2, Z-score -0.8, T-score -1.5, osteopenia, 10.5% decrease from baseline (<5% change is not significant). Baseline: BMD 1.119 g/cm2. IDENTIFIED RISK FACTORS: Early menopause, height loss, hysterectomy, bilateral oophorectomy, secondary osteoporosis, tobacco use (current smoker). HISTORY OF FRACTURE: None listed. MEDICATIONS: Vitamin D. MM/XR DEXA axial skeleton IMPRESSION: 1. DIAGNOSIS: Osteopenia based on the lowest T-score value of -1.5 in the lumbar spine and femur neck applying World Health Organization criteria. 2. 10-YEAR FRACTURE RISK PREDICTION, FRAX: Major osteoporotic fracture (clinical spine, forearm, hip or shoulder) 4.5%. Hip fracture 0.7%. 3. Treatment Recommendations: NOF guidelines recommend consideration for treatment in postmenopausal women and men age 50 and older presenting with the following: -A hip or vertebral (clinical or morphometric) fracture. -T-score less than or equal to -2.5 at the femoral neck or spine after appropriate evaluation to exclude secondary causes. -Low bone mass at the hip or spine and a 10-year fracture probability by FRAX of greater than or equal to 3% for hip fracture or greater than or equal to 20% for major osteoporotic fracture based on the [place] adapted WHO algorithm. 4. Other Recommendations: All treatment decisions require clinical judgment and consideration of individual patient factors, including patient preferences, comorbidities, previous drug use, risk factors not captured in the FRAX model (e.g. frailty, falls, vitamin D deficiency, increased bone turnover, interval significant decline in bone density) and possible under or overestimation of fracture risk by FRAX. Additional medical evaluation for secondary cause of low bone mineral density may be appropriate. FUTURE SCAN RECOMMENDATION: People with diagnosed cases of osteoporosis or at high risk for fracture should have regular bone mineral density tests. For patients eligible for Medicare, routine testing is allowed once every 2 years. The testing frequency can be increased to one year for patients who have rapidly progressing disease, those who are receiving or discontinuing medical therapy to restore bone mass, or have additional risk factors.
== END 2024-03-15 12:41 | disposition home or self-care (01) ==
LOC: HO.MAMMO 12:40
PROVIDERS: PCP General Practice; Visit Provider General Practice
DX: Z12.31 Encounter for screening mammogram for malignant neoplasm of breast (principal); Z13.820 Encounter for screening for osteoporosis; Z78.0 Asymptomatic menopausal state; Z91.89 Other specified personal risk factors, not elsewhere classified
CPT/HCPCS: 77063; 77067; 77080

== ENCOUNTER → 2024-03-15 13:00 | Outpatient (BNV) | payer MEDICAID, SELFPAY | PROVIDERS: PCP General Practice; Visit Provider Radiology Diagnostic Radiology | DX: Z12.31 Encounter for screening mammogram for malignant neoplasm of breast (principal) | CPT/HCPCS: 77063; 77067 ==

== ENCOUNTER 2024-05-18 10:02 | Outpatient (REF) | payer MEDICAID, SELFPAY ==
[2024-05-18 10:57] LABS: MANUAL DIFF FLAG NO
[2024-05-18 11:02] LABS: Basophils Percent Auto 0.5 % (0-2); Eosinophils Absolute Auto 0.2 X10*3/uL (0.0-0.4); Eosinophils Percent Auto 1.9 % (0-4); Hematocrit 40.2 % (37.0-47.0); Hemoglobin 13.1 g/dl (12.0-16.0); Imm Gran Abs Auto 0.02 X10*3/uL (0.00-0.03); Imm Gran Pct Auto 0.2 % (0.0-0.4); Lymphocytes Percent Auto 58.9 % (20-40); Mean Corpuscular HGB Conc 32.6 g/dl (31.0-35.0); Mean Corpuscular Hemoglobin 30.2 pg (27.0-33.0); Mean Corpuscular Volume 92.6 fL (80.0-98.0); Mean Platelet Volume 9.9 fL (9.4-12.3); Monocytes Absolute Auto 0.5 X10*3/uL (0.1-1.2); Neutrophils Absolute Auto 2.8 x10*3/uL (2.0-8.3); Neutrophils Percent Auto 32.5 % (45-73); Platelet Count 254 X10*3/uL (160-400); Red Blood Count 4.34 X10*6/uL (4.20-5.50); Red Cell Distribution Width 14.1 % (11.0-16.0); White Blood Count 8.5 X10*3/uL (4.8-10.8)
[2024-05-18 11:47] LABS: Creatinine Urine 89.53 mg/dL; Microalbum/Creatinine Ratio Ur 11.1 ug/mg cr (<30)
[2024-05-18 12:11] LABS: Anion Gap 7 (12-20)
[2024-05-18 12:14] LABS: Alanine Aminotransferase 33 U/L (0-31); Alkaline Phosphatase 155 U/L (39-117); Aspartate Amino Transferase 73 U/L (5-31); Bilirubin Total 0.6 mg/dL (0.0-1.0); Blood Urea Nitrogen 13 mg/dL (9-16); Calcium 9.7 mg/dL (8.4-10.2); Carbon Dioxide 31 mmol/L (22-29); Chloride 105 mmol/L (96-108); Estimated Glomerular Filt Rate 51; Glucose Random 137 mg/dL (60-115); Potassium 4.4 mmol/L (3.3-5.1); Sodium 139 mmol/L (135-145); Total Protein 8.6 g/dL (6.5-8.0)
[2024-05-20 15:22] LABS: HIV RNA PCR Qn Copies 28 copies/mL (NOT DETECTED); HIV RNA PCR Qn Log Copies 1.45 (NOT DETECTED)
[2024-05-21 16:18] LABS: TS Negative Control Passed; TS Panel A 0; TS Panel B 0; TS Positive Control Passed; TSpotTB Negative (Negative)
[2024-05-25 08:13] LABS: Prolactin Undiluted 8.2 ng/mL
== END 2024-05-18 10:03 | disposition home or self-care (01) ==
LOC: HO.HHCL 10:02
PROVIDERS: PCP General Practice; Visit Provider Student in an Organized Health Care Education/Training Program
DX: Z21 Asymptomatic human immunodeficiency virus [HIV] infection status (principal); E11.8 Type 2 diabetes mellitus with unspecified complications; E23.6 Other disorders of pituitary gland
CPT/HCPCS: 36415; 80053; 82043; 82533; 82570; 84146; 84443; 85025; 86481; 87536

== ENCOUNTER 2024-05-24 08:49 | Outpatient (REF) | payer MEDICAID, SELFPAY ==
--- NOTE | ~2024-05-24 | US_ITS ---
EXAMINATION: US ABDOMEN COMPLETE CLINICAL INFORMATION: Worsening LFTs, check liver, transaminitis. COMPARISON: None available. TECHNIQUE: Real-time imaging of the abdominal viscera. FINDINGS: PANCREAS: The visualized pancreas appears unremarkable but the pancreatic tail is obscured by bowel gas. ABDOMINAL AORTA: The proximal, mid, and distal segments are normal in caliber. INFERIOR VENA CAVA: Visualized portions are normal. LIVER: The liver is enlarged at 20.4 cm in cephalocaudad dimension. The liver contour is normal. There is diffuse increased liver parenchymal echogenicity, consistent with hepatic steatosis. No focal hepatic lesion. There is no intrahepatic biliary duct dilatation seen. GALLBLADDER: Normal. The gallbladder is physiologically distended without evidence of stones, sludge, polyps, wall thickening or pericholecystic fluid. COMMON BILE DUCT: Normal in caliber measuring 0.6 cm in diameter. RIGHT KIDNEY: Normal. No hydronephrosis. No renal calculi or focal parenchymal lesions. The kidney measures 10.0 cm in maximum dimension. LEFT KIDNEY: Normal. No hydronephrosis. No renal calculi or focal parenchymal lesions. The kidney measures 11.0 cm in maximum dimension. SPLEEN: The spleen is enlarged measuring 13.8 cm in maximum dimension. FREE FLUID: None. US/US abdomen complete IMPRESSION: Enlarged fatty liver with associated splenomegaly. Electronically signed by: Desmond Lind MD 07/14/2024 12:44 PM [facility]
== END 2024-05-24 08:50 | disposition home or self-care (01) ==
LOC: HO.US 08:49
PROVIDERS: PCP General Practice; Visit Provider Student in an Organized Health Care Education/Training Program
DX: R74.01 Elevation of levels of liver transaminase levels (principal)
CPT/HCPCS: 76700

== ENCOUNTER 2024-06-23 09:51 | Outpatient (REF) | payer MEDICAID, SELFPAY ==
[2024-06-24 14:08] LABS: HIV RNA PCR Qn Copies 168 copies/mL (NOT DETECTED); HIV RNA PCR Qn Log Copies 2.23 (NOT DETECTED)
[2024-06-26 03:24] LABS: TS Negative Control Passed; TS Panel A 0; TS Panel B 0; TS Positive Control Passed; TSpotTB Negative (Negative)
[2024-06-26 17:53] LABS: Absolute CD3 Count 3071 cells/uL (840-3060); Absolute CD4 Count 1234 cells/uL (490-1740); Absolute CD8 Count 1845 cells/uL (180-1170); Absolute Lymphocytes 4654 cells/uL (850-3900); CD4 CD8 Ratio 0.67 (0.86-5.00); Percent CD3 Cells 66 % (57-85); Percent CD4 Cells 27 % (30-61); Percent CD8 Cells 40 % (12-42)
== END 2024-06-23 09:52 | disposition home or self-care (01) ==
LOC: HO.HHCL 09:51
PROVIDERS: Visit Provider Student in an Organized Health Care Education/Training Program
DX: Z21 Asymptomatic human immunodeficiency virus [HIV] infection status (principal)
CPT/HCPCS: 36415; 86359; 86360; 86481; 87536

== ENCOUNTER 2024-07-04 16:41 | Outpatient (REF) | payer MEDICAID, SELFPAY ==
[2024-07-06 02:59] LABS: Trichomonas vaginalis RNA NOT DETECTED (NOT DETECTED)
== END 2024-07-04 16:42 | disposition home or self-care (01) ==
LOC: HO.HHCLNP 16:41
PROVIDERS: Visit Provider Student in an Organized Health Care Education/Training Program
DX: Z21 Asymptomatic human immunodeficiency virus [HIV] infection status (principal)
CPT/HCPCS: 36415; 87661

== ENCOUNTER 2024-09-09 14:40 | Outpatient (REF) | payer MEDICAID, SELFPAY ==
[2024-09-09 16:12] LABS: Basophils Absolute Auto 0.1 X10*3/uL (0.0-0.2); Basophils Percent Auto 0.5 % (0-2); Eosinophils Absolute Auto 0.2 X10*3/uL (0.0-0.4); Eosinophils Percent Auto 2.3 % (0-4); Hematocrit 40.5 % (37.0-47.0); Hemoglobin 13.5 g/dl (12.0-16.0); Imm Gran Abs Auto 0.03 X10*3/uL (0.00-0.03); Imm Gran Pct Auto 0.3 % (0.0-0.4); Lymphocytes Absolute Auto 5.6 X10*3/uL (1.2-4.9); Lymphocytes Percent Auto 56.3 % (20-40); MANUAL DIFF FLAG SCAN; Mean Corpuscular HGB Conc 33.3 g/dl (31.0-35.0); Mean Corpuscular Hemoglobin 31.8 pg (27.0-33.0); Mean Corpuscular Volume 95.5 fL (80.0-98.0); Mean Platelet Volume 9.7 fL (9.4-12.3); Monocytes Absolute Auto 0.7 X10*3/uL (0.1-1.2); Monocytes Percent Auto 6.6 % (2-11); Neutrophils Absolute Auto 3.4 x10*3/uL (2.0-8.3); Platelet Count 286 X10*3/uL (160-400); Red Blood Count 4.24 X10*6/uL (4.20-5.50); Red Cell Distribution Width 12.6 % (11.0-16.0); SCAN SMEAR FLAG 1
[2024-09-09 16:32] LABS: Alanine Aminotransferase 38 U/L (0-31); Albumin Level 4.2 g/dL (3.5-5.0); Alkaline Phosphatase 164 U/L (39-117); Anion Gap 10 (12-20); Aspartate Amino Transferase 64 U/L (5-31); Bilirubin Total 0.6 mg/dL (0.0-1.0); Blood Urea Nitrogen 13 mg/dL (9-16); Calcium 9.4 mg/dL (8.4-10.2); Carbon Dioxide 30 mmol/L (22-29); Chloride 105 mmol/L (96-108); Estimated Glomerular Filt Rate 48; Glucose Random 113 mg/dL (60-115); Potassium 4.1 mmol/L (3.3-5.1); Sodium 141 mmol/L (135-145); Total Protein 8.8 g/dL (6.5-8.0)
[2024-09-09 16:56] LABS: SLIDE REVIEW VERIFIED
[2024-09-10 03:56] LABS: CT PCR NOT DETECTED (Not Detect.); NG PCR NOT DETECTED (Not Detect.)
[2024-09-10 08:22] LABS: HBS Num1 1.78 mIU/mL (0-7.99); HBc Num1 0.18 S/CO (0.00-0.79); HBsAGNum1 0.38 S/CO (0.00-0.99); Hepatitis B Core Antibody Nonreactive (Nonreactive); Hepatitis B Surface Antigen Negative (Negative); ~HepC Num1 0.14 S/CO (0.00-0.79); ~Hepatitis B Surface Antibody NONREACTIVE (Nonreactive); ~Hepatitis C Antibody Nonreactive (Nonreactive)
[2024-09-10 08:35] LABS: Syphilis Screen Nonreactive (Nonreactive)
[2024-09-11 13:18] LABS: HIV RNA PCR Qn Copies 97 copies/mL (NOT DETECTED); HIV RNA PCR Qn Log Copies 1.99 (NOT DETECTED)
[2024-09-12 09:19] LABS: TS Negative Control Passed; TS Panel A 0; TS Panel B 0; TS Positive Control Passed; TSpotTB Negative (Negative)
[2024-09-12 22:23] LABS: Rubella IgG Antibody 8.87 Index; Rubeola IgG (Measles) >300.00 AU/mL
[2024-09-13 10:49] LABS: Prot Elec - Albumin 4.5 g/dL (3.8-4.8); Prot Elec - Alpha1 0.4 g/dL (0.2-0.3); Prot Elec - Alpha2 0.7 g/dL (0.5-0.9); Prot Elec - Beta 1 0.6 g/dL (0.4-0.6); Prot Elec - Beta 2 0.6 g/dL (0.2-0.5); Prot Elec - Gamma 1.9 g/dL (0.8-1.7); Prot Elec - Total Protein 8.6 g/dL (6.1-8.1)
[2024-09-13 17:13] LABS: Absolute CD3 Count 3683 cells/uL (840-3060); Absolute CD4 Count 1713 cells/uL (490-1740); Absolute CD8 Count 2049 cells/uL (180-1170); Absolute Lymphocytes 5418 cells/uL (850-3900); CD4 CD8 Ratio 0.84 (0.86-5.00); Percent CD3 Cells 68 % (57-85); Percent CD4 Cells 32 % (30-61); Percent CD8 Cells 38 % (12-42)
[2024-09-14 09:48] LABS: IgA 435 mg/dL (70-320); IgG 2266 mg/dL (600-1540); IgM 28 mg/dL (50-300)
== END 2024-09-09 14:41 | disposition home or self-care (01) ==
LOC: HO.HHCL 14:40
PROVIDERS: Visit Provider Student in an Organized Health Care Education/Training Program
DX: Z21 Asymptomatic human immunodeficiency virus [HIV] infection status (principal); R77.9 Abnormality of plasma protein, unspecified; Z11.59 Encounter for screening for other viral diseases; Z72.89 Other problems related to lifestyle
CPT/HCPCS: 80053; 82784; 84165; 85025; 86334; 86359; 86360; 86481; 86704; 86706; 86735; 86762; 86765; 86780; 86787; 86803; 87340; 87491; 87536; 87591

== ENCOUNTER 2025-01-03 13:51 | Outpatient (AMB) | payer MEDICAID, SELFPAY ==
--- NOTE | 2025-01-03 14:17 | A.OFFVIS_ITS ---
Vital Signs 01/03/25 14:22 Height 5 ft 3 in Weight 200 lb BMI 35.4 BP 90/55 L Blood Pressure Location Lt brachial Position Sitting Pulse 80 Pulse Oximetry (%) 97 Oxygen Delivery Method Room Air Oxygen Flow Rate 97 Intake Visit Reasons: acid reflex/[place]ammyton sandra 12/04/2022 Intake Note: Patient complex follow up for acid reflex/Tammy sandra 12/04/2022, last Colonoscopy by Dr. Ruby was 06/30/2023 with 3 yrs recall. Patient cc: GERD with chest pain, constipation with bloody stool on and off, swallowing difficulty, and always tired. Electroplater Automatic Required: No Accompanied by: Self / Same As Patient Allergies penicillin G Allergy (Unknown, Verified 01/03/25 14:16) rash penicillin V Allergy (Unknown, Verified 01/03/25 14:16) rash Medication List - Last Reconciled 01/03/25 by Collette Gabriel CNP albuterol sulfate 90 mcg/actuation (ProAir HFA) 2 puffs inhalation Q6H PRN amitriptyline 25 mg PO BEDTIME aspirin 81 mg PO DAILY lnvytgcle-nrrbqhhm-wcpwwtz ala 50-200-25 mg (Biktarvy) 1 tab PO DAILY bupropion HCl XL (Wellbutrin XL) 300 mg PO QAM waqedfqaap-iwpbbhxfty-yay-cod [id number] mg 1 cap PO Q4H PRN celecoxib 200 mg PO DAILY cetirizine (Zyrtec) 10 mg PO DAILY PRN cholecalciferol (vitamin D3) 25 mcg PO DAILY cyproheptadine 4 mg PO BEDTIME docusate sodium 100 mg PO DAILY fluticasone propion-salmeterol 500-50 mcg/dose (Advair Diskus) 1 inh inhalation BID fluticasone propionate 50 mcg/actuation 1 spray intranasal Q12H hydroxychloroquine 200 mg PO BID methylcellulose (laxative) (Citrucel Sugar Free oral powder) 2 grams PO DAILY PRN omega 4-sps-pxv-fish oil 100-160-1,000 mg (Fish Oil) caps PO omeprazole 40 mg PO DAILY oxybutynin chloride ER 15 mg PO DAILY polyethylene glycol 3350 17 grams PO DAILY propranolol ER 60 mg PO BEDTIME sennosides (senna) 8.6 mg PO DAILY simvastatin 40 mg PO BEDTIME tiotropium bromide (Spiriva with HandiHaler) 1 cap inhalation DAILY HPI HPI acid reflex/Tammy sandra 12/04/2022: Details: Patient is a 64-year-old female with PMH of migraines, nicotine dependence, anxiety and depression, COPD, asthma and HIV. Last visit with JOANNE Morel 12/04/2022 for colonoscopy recall secondary to poor prep. The patient presents today for follow-up regarding pyrosis, which she reports has been ongoing for approximately two years. Over the past year, she has developed progressive dysphagia, primarily affecting solid foods; she is still able to tolerate liquids without difficulty. She notes that her symptoms are triggered by eating all types of food, without specific dietary triggers. She is currently taking omeprazole at approximately 0700 each day and typically eats her first meal around 0900 She also reports longstanding constipation, with bowel movements occurring approximately once per week. Stools are described as hard, and she notes intermittent bright red blood upon wiping. These symptoms have been present for many years and are unchanged. The patient is unsure if she has hemorrhoids. She reports no relief with Miralax, which she takes every other day. She is no longer taking fiber supplements or docusate and is unsure whether she is currently taking senna. She is unable to articulate a clear reason for discontinuing these medications. She also reports experiencing stabbing abdominal pain that precedes bowel movements and resolves following defecation. Patient denies: fever/chills, n/v, appetite changes,, regurgitation or uninten tional wt loss. Typically food consumed: canned soup, rice, pasta, oatmeal sandwich, hot dogs, hamburger minimal fruit and vegetables drink water and juice daily and occasional soda Social history denies ETOH use denies recreational drug use former smoker, cessation 1.5 years ago -family hx as below -denies personal hx of CA PFSH Medical History (Updated 01/03/25 @ 16:33 by Collette Gabriel CNP) Elevated liver enzymes Dysphagia Smoker Migraine headache Anxiety and depression HIV (human immunodeficiency virus infection) COPD (chronic obstructive pulmonary disease) Asthma Surgical History History of esophagogastroduodenoscopy (EGD) Hx of colonoscopy Hx of ovarian cystectomy Hx of tubal ligation Hx of tonsillectomy History of appendectomy Family History (Updated 01/03/25 @ 14:52 by Collette Gabriel CNP) Family/Other Gynecologic cancer Father Diabetes Hypertension Social History Household Members: Children Household Members Other:: Resides in a [facility] Are you a primary nonfarm animal caretaker to a significant other at home: No Do you presently have visiting nurse or other home services: Yes (G[employer]IL[employer]ER) Alcohol intake: never Patient Tobacco Use Status: Current everyday Tobacco user Tobacco use type: Cigarette Cigarettes Per Day: 2 Years Smoked: 30+ Second Hand Smoke Exposure: Yes Review of Systems Const Reports as per HPI ENT Reports as per HPI Card Reports as per HPI Resp Reports as per HPI GI Reports as per HPI Reports as per HPI Physical Exam Vital Signs: Last Vital Signs Pulse 80 01/03/25 14:22 BP 90/55 L 01/03/25 14:22 Pulse Ox 97 01/03/25 14:22 Oxygen Delivery Method Room Air 01/03/25 14:22 Oxygen Flow Rate 97 01/03/25 14:22 BMI result Body Mass Index 35.4 Const General: healthy appearing, no acute distress and well developed Nutritional Appearance: well nourished Orientation/consciousness: patient oriented x3 HEENT Head: Yes normal to inspection, Yes normocephalic and Yes atraumatic Face and sinus: Yes normal facial exam Eyes General: appearance normal, both eyes and all related structures Neck Neck: Yes normal visual inspection Resp Effort & Inspection: normal respiratory effort, able to speak in complete sentences, no tracheal deviation and symmetric chest movement Auscultation: clear to auscultation bilaterally (clear to diminished at mid and bases ) Cardio Jugular venous distension: no JVD Rate: regular rate Rhythm: regular rhythm Heart sounds: S1 normal heart sound present, S2 normal heart sound present, no gallops and no murmurs GI Inspection: Yes normal to inspection, No distended and Yes obesity Palpation (GI): Soft to palpation, not firm, nontender and No hepatosplenomegaly present Auscultation: normal bowel sounds Neuro General: patient oriented x3 Gait exam (Neuro): Normal gait present Psych Appearance: grossly normal Mental Status: mental status grossly normal Speech and movement: Normal speech and movement present Affect: normal affect Attitude: cooperative Thought process: Normal thought process present Thought content: Normal thought content present Insight: Good insight present (Psych) Judgement: Good judgement present (Psych) Results Reviewed Results Reviewed: Operative Note Date of Service: 06/30/23 Indication: screening COLONOSCOPY Procedure: The patient was placed in the left lateral decubitis position and pre-procedure medications were administered. After a digital rectal examination of the ano-rectum, the video colonoscope was inserted into the rectum and advanced through the colon to the cecum/TI. The colonoscope was slowly withdrawn in a retrograde panoramic fashion and the colon mucosa was carefully examined including a retroflexed view of the rectum. Findings and interventions are described below. Procedure Difficulty: moderate Findings: Terminal Ileum-normal Cecum:normal Ascending Colon: 5-6 mm sessile polyp removed with cold forceps, and another 11-12 mm sessile polyp removed with cold snare Transverse Colon -normal Descending Colon:normal Sigmoid Colon: moderate diverticulosis Rectum: Retroflexion with medium sized internal hemorrhoids, grade I Anorectum - normal Colon preparation: [place] Bowel Preparation Scale Right colon; 1-2 Transverse colon: 2 Left colon; 2 Impression and Post Procedure Diagnosis: polyps internal hemorrhoids diverticular disease Plan: High fiber diet leaflet Avoid straining at stool, epsom salts and sitz bath, anusol supps or cream Repeat Colonoscopy in 3 years due to fair right sided prep and polyps or earlier if clinically indicated Pathology Received: 06/30/23 Diagnosis Colon, ascending, polypectomies (2): Fragments of tubular adenomata; negative for high-grade dysplasia or carcinoma. Clinical History Pre-Op Dx: Colon cancer screening Post-Op Dx: Colon polyps, diverticulosis, hemorrho Assessment & Plan Assessment & Plan (1) Acid reflux: Code(s): K21.9 - Gastro-esophageal reflux disease without esophagitis Category: Medical Qualifiers: Esophagitis presence: esophagitis presence not specified Qualified Code(s): K21.9 - Gastro-esophageal reflux disease without esophagitis Plan[facility]. Discussed plan to increase omeprazole to b.i.d. dosing. We will also obtain barium swallow to futher eval reported dysphasia. She will likely need endoscopy which we will review scheduling at follow-up. Encouraged to take omeprazole as prescribed, taken at least 30-60 minutes before a meal. Education on GERD prevention: -Advised against heavy meals; encouraged small, frequent meals instead of large ones. - Instructed to remain upright for 2?3 hours after eating. - Advised to avoid late-night meals, spicy foods, caffeine, alcohol, known dietary triggers, and tight-fitting clothing. - Emphasis placed on gradual implementation of lifestyle changes to improve adherence and symptom control. (2) Chronic constipation: Comment: colonoscopy 2022-repeat in 3 years secondary to fair prep + adenoma polyp 11-12 mm, due 2025. Code(s): K59.09 - Other constipation Category: Medical Plan: Constipation appears to be chronic and likely primary in nature. Notably, she is prescribed amitriptyline, which may contribute to her constipation given its an potential known side effect. We will need a full review of her medications as some of these are reported from 2021. Shares she gets her medication through [facility]. We will likely proceed with colonoscopy at time of endoscopy but will need to get constipation under control first. Reinforced the importance of maintaining a consistent daily bowel regimen. Improving bowel regularity will also help minimize straining and reduce the likelihood of hemorrhoidal/fissure exacerbation, which is suspected to be the source of her reported rectal bleeding. Plan: -Restart MiraLax each morning. -Take docusate and senna at bedtime daily. Reinforced lifestyle modifications to promote regularity: -higher fiber diet, examples provided -adequate hydration with water -150 minutes of moderate intensity exercise per week (3) Dysphagia: Code(s): R13.10 - Dysphagia, unspecified Category: Medical Qualifiers: Dysphagia type: unspecified Qualified Code(s): R13.10 - Dysphagia, un specified Plan: Plan as above. (4) Elevated liver enzymes: Code(s): R74.8 - Abnormal levels of other serum enzymes Category: Medical Plan: Secondary to HIV or medications for HIV management. She is prescribed combination antiretroviral. We will explore history and discuss for which workup at future visits. Plan Follow-up in 4 weeks or sooner as needed. Time: I spent a total of 60 minutes on the date of encounter which includes: Preparing to see the patient (reviewed previous documentation, test results and medical history) Performing a medically appropriate exam and/or evaluation Ordering medications, tests, and procedures Documenting clinical information in the health record Orders: Orders TSH reflex Free T4 Today K59.09 - Other constipation [place] barium swallow Today R13.10 - Dysphagia, unspecified Hemoglobin A1c Today E66.9 - Obesity, unspecified Complete Blood Count no Diff Today K92.1 - Melena Medications: Changed From docusate sodium 100 mg PO DAILY To docusate sodium Take one tablet daily at bedtime 100 mg PO DAILY 90 caps 1RF From sennosides (senna) 8.6 mg PO DAILY To sennosides (senna) Take one tablet daily at bedtime 8.6 mg PO DAILY 90 caps 1RF From omeprazole 40 mg PO DAILY To omeprazole Take one tablet twice daily. Best taken 30-60 minutes before meals 40 mg PO BID Refilled polyethylene glycol 3350 17 grams PO DAILY 510 grams 6RF Coding Level of Care Code Established Pt Est Pt Level 5 (72683) Patient Type Established Diagnoses Gastroesophageal reflux disease, unspecified whether esophagitis present K21.9 Esophagitis presence: esophagitis presence not specified Chronic constipation K59.09 Dysphagia, unspecified type R13.10 Dysphagia type: unspecified Elevated liver enzymes R74.8
[2025-01-03 14:22] VITALS: BP 90/55; PULSE 80; O2SAT 97; BMI 35.4
== END 2025-01-03 15:13 | disposition home or self-care (01) ==
LOC: HO.HGI 13:52
PROVIDERS: PCP General Practice; Visit Provider Nurse Practitioner Family
DX: K21.9 Gastro-esophageal reflux disease without esophagitis (principal); K59.09 Other constipation; R13.10 Dysphagia, unspecified; R74.8 Abnormal levels of other serum enzymes
CPT/HCPCS: 99215

== ENCOUNTER → 2025-01-03 13:51 | Outpatient (BNVA) | payer MEDICAID, SELFPAY | PROVIDERS: PCP General Practice; Visit Provider Nurse Practitioner Family | DX: K59.09 Other constipation (principal); K21.9 Gastro-esophageal reflux disease without esophagitis; R13.10 Dysphagia, unspecified; R74.8 Abnormal levels of other serum enzymes | CPT/HCPCS: 99212 ==

== ENCOUNTER 2025-02-03 10:05 | Outpatient (AMB) | payer MEDICAID, SELFPAY ==
--- NOTE | 2025-02-03 10:08 | A.OFFVIS_ITS ---
Vital Signs 02/03/25 10:09 Height 5 ft 3 in Weight 196 lb 3.382 oz BMI 34.8 BP 144/65 H Blood Pressure Location Lt brachial Position Sitting Pulse 80 Intake Visit Reasons: 4 wks f/u GERD, Dysphagia/blood in stools Intake Note: Taya presents in the office as a 4 week follow up for GERD, Dysphagia and Blood in the stools. CC: She states that swallowing is the same but she states that she just drinks more water to help the food go down. Contact Lens Inspector Required: No Allergies penicillin G Allergy (Unknown, Verified 02/03/25 10:09) rash penicillin V Allergy (Unknown, Verified 02/03/25 10:09) rash HPI HPI 4 wks f/u GERD, Dysphagia/blood in stools: Details: Patient is a 64-year-old female with PMH of migraines, nicotine dependence, anxiety and depression, COPD, asthma and HIV Pt presents for four week f/u of acid reflux, which has been persistent for several months. Sx show mild improvement since omeprazole increased to BID; pt reports easier swallowing, though still requires water with solids. Swallow study in 10/2024 was nl, ordered by PCP. No dietary changes made since last visit. Also reports chronic constipation unchanged, averaging 1-2 BMs/wk, last BM 2d ago?hard stools?requiring Miralax and docusate regularly, but minimal effect; senna taken, but only 1 tablet HS. Denies improvement with current regimen. Hydration primarily with water, occasional soda. Colonoscopy in 2022 showed suboptimal prep and polyps; recommended q3yrs; will coordinate with EGD. No new abdominal pain, vomiting, or GI bleed. PFSH Medical History Elevated liver enzymes Dysphagia Smoker Migraine headache Anxiety and depression HIV (human immunodeficiency virus infection) COPD (chronic obstructive pulmonary disease) Asthma Surgical History History of esophagogastroduodenoscopy (EGD) Hx of colonoscopy Hx of ovarian cystectomy Hx of tubal ligation Hx of tonsillectomy History of appendectomy Family History Family/Other Gynecologic cancer Father Diabetes Hypertension Social History Household Members: Children Household Members Other:: Resides in a [facility] Are you a primary child caregiver to a significant other at home: No Do you presently have visiting nurse or other home services: Yes ([employer] 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) Alcohol intake: never Patient Tobacco Use Status: Current everyday Tobacco user Tobacco use type: Cigarette Cigarettes Per Day: 2 Years Smoked: 30+ Second Hand Smoke Exposure: Yes Review of Systems Const Reports as per HPI ENT Reports as per HPI Card Reports as per HPI Resp Reports as per HPI GI Reports as per HPI Reports as per HPI Physical Exam Vital Signs: Last Vital Signs Pulse 80 02/03/25 10:09 BP 144/65 H 02/03/25 10:09 BMI result Body Mass Index 34.8 Const General: healthy appearing, no acute distress and well developed Nutritional Appearance: obese Orientation/consciousness: patient oriented x3 HEENT Head: Yes normal to inspection, Yes normocephalic and Yes atraumatic Face and sinus: Yes normal facial exam Eyes General: appearance normal, both eyes and all related structures Neck Neck: Yes normal visual inspection Resp Effort & Inspection: normal respiratory effort, able to speak in complete se ntences, no tracheal deviation and symmetric chest movement Auscultation: clear to auscultation bilaterally Cardio Jugular venous distension: no JVD Rate: regular rate Rhythm: regular rhythm Heart sounds: S1 normal heart sound present, S2 normal heart sound present, no gallops and no murmurs GI Inspection: Yes normal to inspection, No distended and Yes obesity Palpation (GI): Soft to palpation, not firm, nontender and No hepatosplenomegaly present Auscultation: Hypoactive bowel sounds present Neuro General: patient oriented x3 Gait exam (Neuro): Normal gait present Psych Appearance: grossly normal Mental Status: mental status grossly normal Speech and movement: Normal speech and movement present Affect: normal affect Attitude: cooperative Thought process: Normal thought process present Thought content: Normal thought content present Insight: Good insight present (Psych) Judgement: Good judgement present (Psych) Results Reviewed Results Reviewed: Operative Note Date of Service: 05/14/22 Operative Information Procedure Description: EGD, Colonoscopy Indication: screening and reflux FLEXIBLE TRANSORAL UPPER GASTROINTESTINAL ENDOSCOPY AND COLONOSCOPY PROCEDURE NOTE UPPER ENDOSCOPY Consent: Indications for the procedure and potential complications of bleeding, perforation, reaction to medications and missed diagnosis were discussed with the patient and informed consent was obtained. Instrument: Olympus GIF H 190 J mid size upper endoscope Monitoring: Vital signs and clinical assessment, continuous EKG monitoring, Pulse oximetry, Carbon Dioxide monitoring and blood pressure monitoring were done throughout the procedure. Procedure: The patient was placed in the left lateral decubitis position and pre-procedure medications were administered and a bite block was placed. The endoscope was inserted into the mouth and advanced under direct vision to the third part of duodenum. A careful inspection was made as the upper endoscope was withdrawn including a retroflexed examination of the proximal stomach; Findings and interventions are described below. Findings: Larynx: boggy and edematous appearing Esophagus: GE junction at 40 cm, diaphragm hiatus at 40 cm, suspected short segment barretts wt an island of salmon pink tissue at GEJ and short tongue Stomach: streaky erythema at antrum. Biopsies were obtained. Grade 2 flap valve on retroflexed examination of the cardia. Duodenum: Normal bulb and descending duodenum, Intervention: Biopsies as noted above COLONOSCOPY Instrument: Olympus variable stiffness pediatric scope 190L Colonoscopy Monitoring: Vital signs and clinical assessment, continuous EKG monitoring, Pulse oximetry, Carbon Dioxide monitoring and blood pressure monitoring were done throughout the procedure. The scope was inserted but the colon was full of stools, up to the ascending colon, with poor visualization so the procedure was aborted. Impression and Post Procedure Diagnosis: Endoscopy Findings: possible barretts gastritis Colonoscopy Findings: poor prep, aborted colonoscopy Plan: Await Pathology results, if h pylori pos then treat Repeat Colonoscopy in few months and review prep instructions with her again PATHOLOGY: Collected: 05/14/22 Location: [facility] Received: 05/14/22 Diagnosis A. Stomach, biopsy: - Antral-type mucosa with moderate chronic inactive inflammation and intestinal metaplasia; no dysplasia seen. - Positive for H. pylori. B. GE junction, biopsy: - Cardiofundic-type mucosa with moderate chronic active inflammation; no intestinal metaplasia seen. - Squamous mucosa within normal limits. Clinical History Pre-Op Dx: Reflux, screening Post-Op Dx: Abortive colonoscopy, possible Kilpatrick's, gastritis Assessment & Plan Assessment & Plan (1) Elevated liver enzymes: Code(s): R74.8 - Abnormal levels of other serum enzymes Category: Medical Plan: Elevated LFTs on recent labs; underlying HIV; ?medication-induced vs HIV- associated. Additional Tests: - Obtain prior workup notes from ID provider, PCP. - Pending med list from PCP, coordinate with ID as needed. - Labs to be drawn post-review to avoid duplication. Medications: - Review all current meds for hepatotoxicity once complete list obtained. (2) Acid reflux: Comment: 05/14/22 EGD Positive for H. pylori, possible Kilpatrick's, gastritis Code(s): K21.9 - Gastro-esophageal reflux disease without esophagitis Category: Medical Qualifiers: Esophagitis presence: esophagitis presence not specified Qualified Code(s): K21.9 - Gastro-esophageal reflux disease without esophagitis Plan: Sx partially controlled on omeprazole 20mg oral BD; dysphagia present; nl swallow study; EGD indicated for persistent sxs. Additional Tests: - Schedule upper endoscopy Medications: - Continue Omeprazole 20mg oral BID. Lifestyle Modifications: - Trial of further dietary adjustment not yet implemented, reiterate avoidance of triggers (spicy/fatty foods, late meals). (3) Encounter for screening colonoscopy: Code(s): Z12.11 - Encounter for screening for malignant neoplasm of colon Category: Medical Plan: Colonoscopy Prep: -extended prep warranted due to constipation and fair prep at time of last colo. Instructions as below - Miralax + Gatorade in split dose; 2 days of clear liquid diet before procedure; detailed instructions provided. Diagnostic Tests: Prescriptions for laxative tablets and Miralax sent to pharmacy; instructions for Gatorade purchase and clear liquid diet given. Medications: - understands to hold weight loss injectable (suspected GLP-1) and aspirin 7 days prior to procedure. Patient educated on procedure preparation, including avoiding certain foods and ensuring clear liquid intake. Advised on necessity for ride post-procedure due to sedation. (4) Chronic constipation: Comment: colonoscopy 2022-repeat in 3 years (2026) secondary to fair prep + adenoma polyp 11-12 mm Code(s): K59.09 - Other constipation Category: Medical Plan: Chronic, refractory to daily PEG 3350 + docusate HS + senna (insufficient dose). Suspected GLP-1 potentially exacerbating symptoms; to confirm agent, dose with PCP Additional Instructions: - Hold injection and aspirin x7d prior to endoscopic procedures. Follow-Up: - Confirm agent, dose with PCP and reconcile med list. Additional Tests: - None indicated unless refractory post regimen change. Medications: - Continue Miralax 17g oral daily. - Continue Docusate sodium 100mg oral HS - Increase Senna 100mg oral nocte ? 200mg (2 tabs) oral HS Lifestyle Modifications: - Increase dietary fiber (handout provided?examples: 1 medium banana ~3g, 1 cup raspberries ~8g, sweet potatoes, etc). - Maintain adequate hydration Plan f/u post-procedures or earlier if indicated. Time: I spent a total of 30 minutes on the date of encounter which includes: Preparing to see the patient (reviewed previous documentation, test results and medical history) Performing a medically appropriate exam and/or evaluation Ordering medications, tests, and procedures Documenting clinical information in the health record Coding Level of Care Code Established Pt Est Pt Level 3 (83574) Patient Type Established Diagnoses Elevated liver enzymes R74.8 Gastroesophageal reflux disease, unspecified whether esophagitis present K21.9 Esophagitis presence: esophagitis presence not specified Encounter for screening colonoscopy Z12.11 Chronic constipation K59.09
[2025-02-03 10:09] VITALS: BP 144/65; PULSE 80; BMI 34.8
--- OUTSIDE RECORDS SUMMARY | 2025-02-03 10:47 | XMS_ITS | Clinical Summary ---
Author Organization 175 [facility] Address [address] [place] [address] Phone Care Team Providers Care Comic Writer Name Role Phone Magdiel Trammell NP Primary Care Provider [phone] Allergies Active Allergy Reactions Criticality Noted Date Comments Penicillins 09/26/2024 Medications amitriptyline (ELAVIL) 25 mg tablet Take by mouth at bedtime. Active glucose blood test strip 1 each by Other route if needed. Use as instructed Active bictegravir-emtri citabine-tenofovi r alafenamide (BIKTARVY) 50-200-25 mg per tablet Take 1 tablet by mouth 1 (one) time each day. Active buPROPion XL (WELLBUTRIN XL) 300 mg 24 hr tablet Take 1 tablet (300 mg total) by mouth 1 (one) time each day. Do not crush, chew, or split. Active butalbital-aspiri n-caffeine (FIORINAL) 50-325-40 mg per capsule Take 1 capsule by mouth every 4 (four) hours if needed for headaches. Active cetirizine (ZyrTEC) 10 mg chewable tablet Chew 1 (one) time each day. Active cyproheptadine (PERIACTIN) 4 mg tablet Take by mouth. Activ e omega 9-vpa-vse-fish oil (Fish OiL) 1,000 (120-180) mg capsule Active hydrOXYzine pamoate (VISTARIL) 25 mg capsule Take 1 capsule (25 mg total) by mouth 3 (three) times a day if needed for itching. Active meloxicam (MOBIC) 15 mg tablet Take 1 tablet (15 mg total) by mouth 1 (one) time each day. Active oxyBUTYnin XL (DITROPAN-XL) 10 mg 24 hr tablet Take by mouth. Do not crush, chew, or split. Active polyethylene glycol (MIRALAX) 17 gram packet Take 17 g by mouth 1 (one) time each day. Active propranolol LA (INDERAL LA) 60 mg 24 hr capsule Take 1 capsule (60 mg total) by mouth 1 (one) time each day. Do not crush, chew, or split. Active simvastatin (ZOCOR) 40 mg tablet Take 1 tablet (40 mg total) by mouth at bedtime. Active tiotropium (SPIRIVA) 18 mcg per inhalation capsule Place 1 capsule (18 mcg total) into inhaler and inhale 1 (one) time each day. Active dulaglutide (TRULICITY) 1.5 mg/0.5 mL pen injector injection Inject 0.5 mL (1.5 mg total) under the skin every 7 (seven) days. Active cholecalciferol (VITAMIN D-3) 25 mcg (1,000 unit) tablet Take 1 tablet (1,000 Units total) by mouth 1 (one) time each day. Active linaCLOtide (Linzess) 72 mcg capsuleIndication s:Drug-induced constipation Take 1 capsule (72 mcg total) by mouth 1 (one) time each day. 30 each 5 12/23/19 26 Active omeprazole (PriLOSEC) [address] capsuleIndication s:Gastroesophagea l reflux disease, unspecified whether esophagitis present Take 1 capsule (40 mg total) by mouth 1 (one) time each day. Do not crush or chew. 30 each 5 12/23/19 26 Active Active Problems Problem Noted Date Diagnosed Date COPD (chronic obstructive pu lmonary disease) ([facility] V24, [facility] V28) 12/22/2024 HIV (human immunodeficiency virus infection) ([facility] V24, [facility] V28) 12/22/2024 Depression 12/22/2024 Migraines 12/22/2024 Asthma 12/22/2024 T2DM (type 2 diabetes mellitus) ([facility] V24, [facility] V28) 12/22/2024 Chronic sinusitis 12/14/2024 Chronic laryngitis 12/14/2024 Achalasia of esophagus 12/14/2024 Chronic hoarseness 12/14/2024 Dysphagia 12/14/2024 Oropharyngeal dysphagia 12/14/2024 Encounters Date Type Department Care Team Description 12/23/2024 Telephone Gastroenterology [facility] 175 [facility] 175 [facility] [address] [place] [phone] Chani Harper [place] 12/22/2024 1:50 PM EDT Office Visit Gastroenterology - [facility] 299 [facility] [address] [place] [phone] Sara Eric PA Abnormal barium swallow (Primary Dx); Gastroesophageal reflux disease, unspecified whether esophagitis present; Drug-induced constipation; Colon cancer screening 12/21/2024 2:30 PM EDT Office Visit Orthopedic Surgery [facility] [address] [phone] Jono Weston DPM Bursitis of left foot (Primary Dx); Diabetic mononeuropathy simplex ([facility] V24, [facility] V28); Dermatophytosis of nail; Pain in toe of right foot; Pain in toe of left foot 12/05/2024 Telephone Orthopedic Surgery [facility] 250 [address] [facility] [address] [place] [address] Jono Weston DPM Med Refill 11/08/2024 2:15 PM EDT Office Visit [facility] [address] [phone] Jono Weston DPM Bursitis of left foot (Primary Dx); Follow-up exam from Last 3 Months Surgical History Surgery Date Site/Laterality Comments TONSILLECTOMY APPENDECTOMY LARYNGOSCOPY With biopsy--debris in subglottis, cultured and biopsied, no ulcerative or friable lesion, areas of edema/irritation biopsied Medical History Medical History Date Comments HIV (human immunodeficiency virus infection) (CM S/HCC V24, CMS/HCC V28) COPD (chronic obstructive pulmonary disease) (CM S/HCC V24, CMS/HCC V28) Migraines Diabetes mellitus (CMS/HCC V24, CMS/HCC V28) GERD (gastroesophageal reflux disease) Anxiety Depression Hyperlipidemia Hypertension Social History Tobacco Use Types Packs/Day Years Used Date Smoking Tobacco: Former Cigarettes Q uit: 1975 Smokeless Tobacco: Never Tobacco Cessation:Counseling Given: Not Answered Alcohol Use Standard Drinks/Week Comments Never 0 (1 standard drink = 0.6 oz pur e alcohol) Interpersonal Safety Answer Date Record ed Physical Abuse 10/24/2024 Verbal Abuse 10/24/2024 Comments No Sex and Gender Information Value Date Recorded Sex Assigned at Female 10/21/2024 2:18 PM EST Legal Sex Female 11:16 AM EDT Gender Identity Female 10/21/2024 2:18 PM EST Sexual Orientation Straight 10/21/2024 2: 18 PM EST Obstetrics History Last Filed Vital Signs Vital Sign Reading Time Taken Comments Blood Pressure 116/72 10/24/2024 12:25 PM EST Pulse 73 10/24/2024 12:25 PM EST Temperature 36.3 ??C (97.3 ??F) 10/24/2024 12:[address] Respiratory Rate 12 10/24/2024 12:25 PM EST Oxygen Saturation 95% 10/24/2024 12:25 PM EST Inhaled Oxygen Concentration - - Weight 91.6 kg (202 lb) 12/22/2024 1:39 PM EDT Height 160 cm (5' 3 ) 12/22/2024 1:39 PM EDT Body Mass Index 35.78 12/22/2024 1:39 PM EDT Plan of Treatment Upcoming Encounters Date Type Department Care Team (Late st Contact Info) Description 03/22/2025 1:45 PM EDT Office Visit Orthopedic Surgery - [place] [address] [phone] Jono Weston, DPM [address] [address] Health Maintenance Due Date Last Done Comments Breast Cancer Screening 1962 Diabetes: Annual GFR (Glomerular Filtration Rate) 1962 Diabetes: Annual Foot Exam 1972 Diabetes: Annual Retina Eye Exam 1972 MMR Vaccines (1 of 2 - Risk 2-dose series) 1980 Cervical Cancer Screening: Pap Smear 1983 Cholesterol Screening (Lipid Panel) 07/01/2024 Colorectal Cancer Screening: Colonoscopy 07/01/2024 Depression Screening 07/01/2024 Hepatitis C Screening 07/01/2024 Social Influencers of Health Screening 07/01/2024 Diabetes: Annual Urine Albumin-Creatinine Ratio (uACR) 09/26/2024 Diabetes: Blood Sugar Control Test (HGBA1C) 09/26/2024 COVID-19 Vaccine (8 - Moderna risk season) 2025 07/04/2024, 09/18/2023, 10/01/2022, Additional history exists Meningococcal ACWY Vaccine (4 - Risk 2-dose series) 07/13/2028 07/13/2023, 02/15/2018, 04/20/2017 DTaP,Tdap,and Td Vaccines (5 - Td or Tdap) 11/30/2031 11/29/2021, 04/19/2010, 04/19/2010, Additional history exists Hepatitis A Vaccines Completed 09/20/2003, 06/16/2003, 08/26/2001, Additional history exists Zoster Vaccines Completed 07/30/2021, 05/24/2021 Pneumococcal Vaccine: 50+ Years Completed 07/13/2023, 02/15/2018, 05/22/2014, Additional history exists Pneumococcal Vaccine: Pediatrics (0 to 5 Years) and At-Risk Patients (6 to 64 Years) Completed 07/13/2023, 02/15/2018, 05/22/2014, Additional history exists RSV Immunization Adult Patients Completed 09/24/2023 Influenza Vaccine Completed 05/16/2024, , 05/29/2022, Additional history exists Hepatitis B Vaccines Completed 09/23/2024, 02/22/2024, 02/11/2011, Additional history exists HIB Vaccines Aged Out No longer eligi ble based on patient's age to complete this topic HPV Vaccines Aged Out No longer eligi ble based on patient's age to complete this topic IPV Vaccines Aged Out No longer eligi ble based on patient's age to complete this topic Meningococcal B Vaccine Aged Out No l onger eligible based on patient's age to complete this topic RSV Immunization Patients Under 20 months Aged Out No longer eligible based on patient's age to complete this topic Varicella Vaccines Aged Out No longer eligible based on patient's age to complete this topic Medical Devices Implanted Type Area Band Log Mill And Carriage Operator Device Identifier Shelf Expiration Date Model / Serial / Lot Prolaryn Plus Voice Injection 1cc - Sn/A - [id number] Implanted:Qty: 1 on 10/24/2024 by Keiko Almeida MD at [facility] [employer] N/A: Throat [employer] [id number] / N/A / N/A Procedures Procedure Name Priority Date/Time Associated Diagnosis Comments XR FOOT 3+ VIEWS LEFT Routine 11/08/2024 2:33 PM EDT Follow-up exam from Last 3 Months Results * XR Foot 3+ Views Left (11/08/2024 2:33 PM EDT) Anatomical Region Laterality Modality Lower Extremities, Foot Left Computed Radiography Narrative 11/08/2024 4:10 PM EDT Left foot 3 views No fracture. No radiopaque foreign joint spaces normal ?? Posterior calcifications of Achilles tendon noted Foot position rectus Normal talus navicular position normal calcaneal inclination normal symes line talus navicular joint to calcaneal cuboid joint us Jono Weston DPM IMG XR PROCEDURES Final R esult from Last 3 Months Insurance MEDICAID - [place] Care Teams Comic Writer Relationship Specialty Start Date End Date Magdiel Trammell NP [address] [place], [place] PCP - General Nurse Practitioner 07/27/24
== END 2025-02-03 10:49 | disposition home or self-care (01) ==
LOC: HO.HGI 10:06
PROVIDERS: PCP General Practice; Visit Provider Nurse Practitioner Family
DX: Z01.818 Encounter for other preprocedural examination (principal); Z12.11 Encounter for screening for malignant neoplasm of colon; K59.09 Other constipation; K21.9 Gastro-esophageal reflux disease without esophagitis; R74.01 Elevation of levels of liver transaminase levels
CPT/HCPCS: 99213

== ENCOUNTER → 2025-02-03 10:05 | Outpatient (BNVA) | payer MEDICAID, SELFPAY | PROVIDERS: PCP General Practice; Visit Provider Nurse Practitioner Family | DX: K21.9 Gastro-esophageal reflux disease without esophagitis (principal); K59.09 Other constipation; R74.8 Abnormal levels of other serum enzymes; Z12.11 Encounter for screening for malignant neoplasm of colon | CPT/HCPCS: 99212 ==

== ENCOUNTER 2025-03-22 11:42 | Outpatient (REF) | payer MEDICAID, SELFPAY ==
--- NOTE | ~2025-03-22 | MM_ITS ---
EXAMINATION: MM SCREENING DIGITAL BREAST TOMOSYNTHESIS, BILATERAL CLINICAL INFORMATION: Screening. Asymptomatic. COMPARISON: Comparison made to multiple prior, most recent March 15, 2024, and most remote August 06, 2018. TECHNIQUE: Digital breast tomosynthesis is performed in both the craniocaudal and mediolateral oblique views along with computer-aided detection (CAD). Synthesized 2D images are generated from the tomosynthesis. FINDINGS: BREAST COMPOSITION: There are scattered areas of fibroglandular density (ACR BI-RADS breast composition Category b). BILATERAL BREASTS: No significant masses, suspicious calcifications or other abnormalities are seen in either breast. MM/MM tomosynthesis screening BI IMPRESSION: BILATERAL BREASTS: Negative, no mammographic evidence of malignancy. Normal interval follow-up is recommended in 12 months. ASSESSMENT: BI-RADS 1 - Negative RECOMMENDATION: Routine annual mammography screening. FOLLOW-UP: 1 year F/U This examination should not preclude the clinical evaluation of a suspicious palpable abnormality. This patient's information was entered into a reminder system with a target due date for their next mammogram. Electronically signed by: Goldy Burton MD 03/28/2025 06:47 PM EDT
--- OUTSIDE RECORDS SUMMARY | 2025-03-22 12:35 | XMS_ITS | Clinical Summary ---
Author Organization 175 [facility] Address [address] [place] [address] Phone Care Team Providers Care Tire Buster Name Role Phone Magdiel Trammell NP Primary Care Provider [phone] Allergies Active Allergy Reactions Criticality Noted Date [...] tablet Take by mouth. Activ e omega 2-dhe-len-fish oil (Fish OiL) 1,000 (120-180) mg capsule [...] Date COPD (chronic obstructive pu lmonary disease) ([facility] V24, [facility] V28) 12/22/2024 HIV (human immunodeficiency virus infection) ([facility] V24, [facility] V28) 12/22/2024 Depression 12/22/2024 Migraines 12/22/2024 Asthma 12/22/2024 T2DM (type 2 diabetes mellitus) ([facility] V24, [facility] V28) 12/22/2024 Chronic sinusitis 12/14/2024 Chronic laryngitis 12/14/2024 Achalasia of esophagus 12/14/2024 Chronic hoarseness 12/14/2024 Dysphagia 12/14/2024 Oropharyngeal dysphagia 12/14/2024 Encounters Date Type Department Care Team Description 12/23/2024 Telephone Gastroenterology - [place] 175 [facility] 175 [facility] [address] [place] [phone] Chani Harper [place] 12/22/2024 1:50 PM EDT Office Visit Gastroenterology - [address] [place] 299 [facility] [address] [place] [phone] Sara Eric PA Abnormal barium swallow (Primary Dx); Gastroesophageal reflux disease, unspecified whether esophagitis present; Drug-induced constipation; Colon cancer screening 12/21/2024 2:30 PM EDT Office Visit Orthopedic Surgery - [place] 250 175 [facility] [address] [place] [phone] Jono Weston, DPSavanna Bursitis of left foot (Primary Dx); Diabetic mononeuropathy simplex ([facility] V24, [facility] V28); Dermatophytosis of nail; Pain in toe of right foot; Pain in toe of left foot from Last 3 Months Surgical History Surgery Date Site/Laterality Comments TONSILLECTOMY APPENDECTOMY LARYNGOSCOPY With biopsy--debris in subglottis, cultured and biopsied, no ulcerative or friable lesion, areas of edema/irritation biopsied Medical History Medical History Date Comments HIV (human immunodeficiency virus infection) ( [facility] V24, [facility] V28) COPD (chronic obstructive pulmonary disease) ( [facility] V24, [facility] V28) Migraines Diabetes mellitus ([facility] V24, [facility] V28) GERD (gastroesophageal reflux disease) Anxiety Depression [...] 73 10/24/2024 12:25 PM EST Temperature 36.3 C (97.3 F) 10/24/2024 12:25 PM EST Respiratory Rate 12 10/24/2024 12:25 PM EST Oxygen Saturation 95% 10/24/2024 12:25 PM EST Inhaled Oxygen Concentration - - Weight 91.6 kg (202 lb) 12/22/2024 1:39 PM EDT Height 160 cm (5' 3 ) 12/22/2024 1:39 PM EDT Body Mass Index 35.78 12/22/2024 1:39 PM EDT Plan of Treatment Health Maintenance Due Date Last Done Comments Breast Cancer Screening 1962 Diabetes: Annual GFR (Glomerular Filtration Rate) 1962 Diabetes: Annual Foot Exam 1972 Diabetes: Annual Retina Eye Exam 1972 MMR Vaccines (1 of 2 - Risk 2-dose series) 1980 Cervical Cancer Screening: Pap Smear 1983 Cholesterol Screening (Lipid Panel) 07/01/2024 Colorectal Cancer Screening: Colonoscopy 07/01/2024 Hepatitis C Screening 07/01/2024 Social Influencers of Health Screening 07/01/2024 Depression Screening 08/31/2024 Diabetes: Annual Urine Albumin-Creatinine Ratio (uACR) 09/26/2024 Diabetes: Blood Sugar Control Test (HGBA1C) 09/26/2024 COVID-19 Vaccine (8 - Moderna risk season) 2025 07/04/2024, 09/18/2023, 10/01/2022, Additional history exists Influenza Vaccine (#1) 2025 , 05/13/2023, 05/29/2022, Additional history exists Meningococcal ACWY Vaccine (4 - Risk 2-dose series) 07/13/2028 07/13/2023, 02/15/2018, 04/20/2017 DTaP,Tdap,and Td Vaccines (5 - Td or Tdap) 11/30/2031 11/29/2021, 04/19/2010, 04/19/2010, Additional history exists Hepatitis A Vaccines Completed 09/20/2003, 06/16/2003, 08/26/2001, Additional history exists Zoster Vaccines Completed 07/30/2021, 05/24/2021 Pneumococcal Vaccine: 50+ Years Completed 07/13/2023, 02/15/2018, 05/22/2014, Additional history exists RSV Immunization Adult Patients Completed 09/24/2023 Hepatitis B Vaccines Completed 09/23/2024, 02/22/2024, 02/11/2011, [...] this topic Medical Devices Implanted Type Area Security Guard Supervisor Device Identifier Shelf Expiration Date Model / Serial / Lot Prolaryn Plus Voice Injection 1cc - Sn/A - [id number] Implanted:Qty: 1 on 10/24/2024 by Keiko Almeida MD at [facility] [employer] N/A: Throat [employer] [id number] / N/A / N/A Insurance MEDICAID - [place] Care Teams Tire Buster Relationship Specialty Start Date End Date Magdiel Trammell NP [address] [place] [address] PCP - General Nurse Practitioner 07/27/24
[2025-03-22 13:33] LABS: Hematocrit 41.6 % (37.0-47.0); Hemoglobin 13.6 g/dl (12.0-16.0); Imm Gran Abs Auto 0.01 X10*3/uL (0.00-0.03); Imm Gran Pct Auto 0.1 % (0.0-0.4); Lymphocytes Absolute Auto 5.5 X10*3/uL (1.2-4.9); MANUAL DIFF FLAG SCAN; Mean Corpuscular HGB Conc 32.7 g/dl (31.0-35.0); Mean Corpuscular Hemoglobin 32.0 pg (27.0-33.0); Mean Corpuscular Volume 97.9 fL (80.0-98.0); NRBC Abs Auto 0.000 X10*3/uL (0.0-0.012); NRBC Pct Auto 0.0 /100WBC (0.0-0.2); Platelet Count 249 X10*3/uL (160-400); Red Blood Count 4.25 X10*6/uL (4.20-5.50); SCAN SMEAR FLAG 1; White Blood Count 9.1 X10*3/uL (4.8-10.8)
[2025-03-22 13:45] LABS: Alanine Aminotransferase 38 U/L (0-31); Albumin Level 4.4 g/dL (3.5-5.0); Alkaline Phosphatase 149 U/L (39-117); Anion Gap 11 (12-20); Aspartate Amino Transferase 52 U/L (5-31); Blood Urea Nitrogen 10 mg/dL (9-16); Calcium 9.6 mg/dL (8.4-10.2); Carbon Dioxide 28 mmol/L (22-29); Chloride 108 mmol/L (96-108); Estimated Glomerular Filt Rate > 60; Potassium 4.8 mmol/L (3.3-5.1); Sodium 142 mmol/L (135-145); Total Protein 8.2 g/dL (6.5-8.0)
[2025-03-22 13:46] LABS: Hemoglobin A1C 171.4983 umol/L; Total Hemoglobin (HGBA1C) 3538.7057 umol/L
[2025-03-24 15:38] LABS: HIV RNA PCR Qn Copies 229 copies/mL (NOT DETECTED); HIV RNA PCR Qn Log Copies 2.36 (NOT DETECTED)
== END 2025-03-22 11:43 | disposition home or self-care (01) ==
LOC: HO.MAMMO 11:42
PROVIDERS: Nurse Practitioner Family; PCP General Practice; Referring Provider Student in an Organized Health Care Education/Training Program; Visit Provider General Practice
DX: Z21 Asymptomatic human immunodeficiency virus [HIV] infection status (principal); Z12.31 Encounter for screening mammogram for malignant neoplasm of breast; K59.09 Other constipation; E66.9 Obesity, unspecified; K92.1 Melena
CPT/HCPCS: 36415; 77063; 77067; 80053; 83036; 84443; 85025; 85027; 87536

== ENCOUNTER → 2025-03-22 13:00 | Outpatient (BNV) | payer MEDICAID, SELFPAY | PROVIDERS: PCP General Practice; Referring Provider Student in an Organized Health Care Education/Training Program; Visit Provider Radiology Body Imaging | DX: Z12.31 Encounter for screening mammogram for malignant neoplasm of breast (principal) | CPT/HCPCS: 77063; 77067 ==

== ENCOUNTER 2025-05-22 14:07 | Outpatient (REF) | payer MEDICAID, SELFPAY ==
[2025-05-22 16:10] LABS: MANUAL DIFF FLAG NO
[2025-05-22 16:25] LABS: INTERNATIONAL NORM RATIO 1.0 (0.9-1.1); Prothrombin Time 11.3 SEC (10.9-12.4)
[2025-05-22 16:31] LABS: Hematocrit 38.9 % (37.0-47.0); Hemoglobin 12.7 g/dl (12.0-16.0); Imm Gran Abs Auto 0.02 X10*3/uL (0.00-0.03); Imm Gran Pct Auto 0.2 % (0.0-0.4); Lymphocytes Absolute Auto 4.9 X10*3/uL (1.2-4.9); Mean Corpuscular HGB Conc 32.6 g/dl (31.0-35.0); Mean Corpuscular Hemoglobin 31.6 pg (27.0-33.0); Mean Corpuscular Volume 96.8 fL (80.0-98.0); NRBC Abs Auto 0.000 X10*3/uL (0.0-0.012); NRBC Pct Auto 0.0 /100WBC (0.0-0.2); Platelet Count 251 X10*3/uL (160-400); Red Blood Count 4.02 X10*6/uL (4.20-5.50); White Blood Count 8.5 X10*3/uL (4.8-10.8)
[2025-05-22 16:51] LABS: Alanine Aminotransferase 38 U/L (0-31); Albumin Level 4.3 g/dL (3.5-5.0); Alkaline Phosphatase 153 U/L (39-117); Anion Gap 11 (12-20); Aspartate Amino Transferase 56 U/L (5-31); Blood Urea Nitrogen 15 mg/dL (9-16); Calcium 9.4 mg/dL (8.4-10.2); Carbon Dioxide 30 mmol/L (22-29); Chloride 103 mmol/L (96-108); Estimated Glomerular Filt Rate > 60; Ferritin 126 ng/mL (10-250); Gamma Glutamyl Transpeptidase 163 U/L (7-33); Lipase 37 U/L (8-78); Potassium 4.1 mmol/L (3.3-5.1); Sodium 140 mmol/L (135-145); Total Protein 7.9 g/dL (6.5-8.0)
[2025-05-23 21:38] LABS: Anti Nuclear Antibody Screen POSITIVE (NEGATIVE); Anti Nuclear Antibody Titer 1:40 titer
[2025-05-24 01:02] LABS: HIV RNA PCR Qn Copies NOT DETECTED copies/mL (NOT DETECTED); HIV RNA PCR Qn Log Copies NOT DETECTED (NOT DETECTED)
[2025-05-25 17:03] LABS: Alk.Phos Iso. Macrohepatic 0 % (<=0); Alk.Phos Isoenzymes Bone 27 % (28-66); Alk.Phos Isoenzymes Intest 17 % (1-24); Alk.Phos Isoenzymes Liver 56 % (25-69); Alk.Phos Isoenzymes Placental 0 % (<=0); Alk.Phos Isoenzymes Total 144 U/L (37-153)
[2025-05-26 15:10] LABS: Absolute CD3 Count 3748 cells/uL (840-3060); Absolute CD8 Count 1821 cells/uL (180-1170); Percent CD3 Cells 67 % (57-85); Percent CD8 Cells 33 % (12-42)
== END 2025-05-22 14:08 | disposition home or self-care (01) ==
LOC: HO.HHCL 14:07
PROVIDERS: PCP General Practice; Referring Provider Nurse Practitioner Family; Visit Provider Student in an Organized Health Care Education/Training Program
DX: Z21 Asymptomatic human immunodeficiency virus [HIV] infection status (principal); R74.01 Elevation of levels of liver transaminase levels
CPT/HCPCS: 36415; 80053; 82105; 82728; 82977; 83690; 84080; 85025; 85610; 86015; 86038; 86039; 86359; 86360; 86381; 87536

== ENCOUNTER 2025-06-05 11:36 | Outpatient (REF) | payer MEDICAID, SELFPAY ==
--- OUTSIDE RECORDS SUMMARY | 2025-06-05 14:12 | XMS_ITS | Clinical Summary ---
Author Organization 175 [facility] Address [address] [place] [address] Phone Care Team Providers Care Quartz Mounter Name Role Phone Magdiel Trammell NP Primary Care Provider [phone] Allergies Active Allergy Reactions Criticality Noted Date [...] tablet Take by mouth. Activ e omega 0-qud-ldm-fish oil (Fish OiL) 1,000 (120-180) mg capsule [...] Date COPD (chronic obstructive pu lmonary disease) ([facility] V24, [facility] V28) 12/22/2024 HIV (human immunodeficiency virus infection) ([facility] V24, [facility] V28) 12/22/2024 Depression 12/22/2024 Migraines 12/22/2024 Asthma 12/22/2024 T2DM (type 2 diabetes mellitus) ([facility] V24, [facility] V28) 12/22/2024 Chronic sinusitis 12/14/2024 Chronic laryngitis 12/14/2024 Achalasia of esophagus 12/14/2024 Chronic hoarseness 12/14/2024 Dysphagia 12/14/2024 Oropharyngeal dysphagia 12/14/2024 Surgical History Surgery Date Site/Laterality Comments TONSILLECTOMY APPENDECTOMY LARYNGOSCOPY With biopsy--debris in subglottis, cultured and biopsied, no ulcerative or friable lesion, areas of edema/irritation biopsied Medical History Medical History Date Comments HIV (human immunodeficiency virus infection) ( S/[facility] V24, [facility] V28) COPD (chronic obstructive pulmonary disease) ( S/[facility] V24, [facility] V28) Migraines Diabetes mellitus ([facility] V24, [facility] V28) GERD (gastroesophageal reflux disease) Anxiety Depression Hyperlipidemia Hypertension Social History Tobacco Use Types Packs/Day Years Used Date Smoking Tobacco: Former Cigarettes Q uit: 1974 Smokeless Tobacco: Never Tobacco Cessation:Counseling Given: Not Answered Alcohol Use Standard Drinks/Week Comments Never 0 (1 standard drink = 0.6 oz pur e alcohol) Interpersonal Safety Answer Date Record ed Physical Abuse Unrecognized value 10/24/2024 Verbal Abuse Unrecognized value 10/24/2024 Comments No Sex and Gender Information [...] Last Done Comments Breast Cancer Screening 1962 Colorectal Cancer Screening: Colonoscopy 1962 Diabetes: Annual GFR (Glomerular Filtration Rate) 1962 Diabetes: Annual Foot Exam 1972 Diabetes: Annual Retina Eye Exam 1972 MMR Vaccines (1 of 2 - Risk 2-dose series) 1980 Cervical Cancer Screening: Pap Smear 1983 Cholesterol Screening (Lipid Panel) 07/01/2024 Hepatitis C Screening 07/01/2024 Social Influencers [...] this topic Medical Devices Implanted Type Area Supervisor Grower Device Identifier Shelf Expiration Date Model / Serial / Lot Prolaryn Plus Voice Injection 1cc - Sn/A - [id number] Implanted:Qty: 1 on 10/24/2024 by Keiko Almeida MD at [facility] [employer] N/A: Throat [employer] [id number] / N/A / N/A Insurance MEDICAID - [place] Care Teams Quartz Mounter Relationship Specialty Start Date End Date Magdiel Trammell NP [address] [place], [place] PCP - General Nurse Practitioner 07/27/24
[2025-06-12 11:18] LABS: HPV MRNA E6/E7 Rectal DETECTED
[2025-06-13 17:53] LABS: HPV 16 RNA, Rectal NOT DETECTED; HPV 18/45 RNA Rectal NOT DETECTED
== END 2025-06-05 11:37 | disposition home or self-care (01) ==
LOC: HO.LNP 11:36
PROVIDERS: Visit Provider Student in an Organized Health Care Education/Training Program
DX: Z21 Asymptomatic human immunodeficiency virus [HIV] infection status (principal); Z11.59 Encounter for screening for other viral diseases
CPT/HCPCS: 87624; 87625; 88112